=== PATIENT | female | born 1960 | race Caucasian/White ===

== ENCOUNTER 2017-07-20 14:52 | Inpatient (IN) | payer OTHER ==
--- NOTE | 2017-07-20 19:08 | HP ---
COWS - Scale Resting Pulse: 0= [place] 80 or Below Sweatin= Chills/Flushing Restless Observation: 3= Extraneous Movement Pupil Size: 0= Normal to Room Light Bone or Joint Aches: 2= Severe Diffuse Aches Runny Nose/ Eye Tearin= Runny Nose/Eyes GI Upset > 30mins: 2= Nausea/Diarrhea Tremor Observation: 2= Slight Tremor Visible Yawning Observation: 0= None Anxiety or Irritability: 2=Irritable/Anxious Goose Flesh Skin: 0=Smooth Skin COWS Score: 14 Admission [facility] Chief Complaint: withdrawal sx Allergies/Adverse Reactions: Allergies Allergy/AdvReac Type Severity Reaction Status Date / Time No Known Allergies Allergy Verified 07/20/17 17:54 History of Present Illness: 56 years old female with long history of heroin nicotine cocaine dependence has hypertension asthma diabetes and depression is admitted to detox Exam Limitations: No Limitations - Ebola screening Have you traveled outside of the country in the last 21 days: No Have you had contact with anyone from an Ebola affected area: No Have you been sick,other than usual withdrawal symptoms: No Do you have a fever: No - Review of Systems Constitutional: Loss of Appetite, Changes in sleep, Unintentional Wgt. Loss EENT: reports: Difficulty Swallowing (x few months possible due to "walking pneumonia" treated at [facility]), Throat Swelling (by history diatician evaluation pending) Respiratory: reports: No Symptoms reported Cardiac: reports: No Symptoms Reported, Other (mild left rib hurts below marginal of breast from "fell") GI: reports: Poor Appetite, Poor Fluid Intake, Abdominal cramping : reports: No Symptoms Reported Musculoskeletal: reports: Back Pain, Joint Pain, Muscle Pain, Neck Pain Integumentary: reports: No Symptoms Reported Neuro: reports: Tremors Endocrine: reports: No Symptoms Reported Hematology: reports: No Symptoms Reported Psychiatric: reports: Judgement Intact, Orientated x3, Depressed Other Systems: Reviewed and Negative Patient History - Patient Medical History Hx Anemia: No Hx Asthma: Yes (currently on prn medication) Hx Chronic Obstructive Pulmonary Disease (COPD): No Hx Cancer: No Hx Cardiac Disorders: No Hx Congestive Heart Failure: No Hx Hypertension: Yes (currently on treatment) Hx Hypercholesterolemia: No Hx Pacemaker: No HX Cerebrovascular Accident: No Hx Seizures: No Hx Dementia: No Hx Diabetes: Yes (IDDM) Hx Gastrointestinal Disorders: No Hx Liver Disease: No Hx Genitourinary Disorders: No Hx Sexually Transmitted Disorders: No Hx Renal Disease (ESRD): No Hx Thyroid Disease: No Hx Human Immunodeficiency Virus (HIV): Yes (since 1990) Hx Hepatitis C: No Hx Depression: Yes Hx Suicide Attempt: No Hx Bipolar Disorder: No Hx Schizophrenia: No - Patient Surgical History Past Surgical History: No Hx Neurologic Surgery: No Hx Cataract Extraction: No Hx Cardiac Surgery: No Hx Lung Surgery: No Hx Breast Surgery: No Hx Breast Biopsy: No Hx Abdominal Surgery: No Hx Appendectomy: No Hx Cholecystectomy: No Hx Genitourinary Surgery: No Hx Section: No Hx Orthopedic Surgery: No Hx Hysterectomy: No - PPD History Previous Implant?: Yes Documented Results: Negative w/proof Implanted On Prior [facility] Admission?: Yes Date: 03/21/15 Results: 0 mm PPD to be Administered?: Yes - Reproductive History Patient is a Female of Child Bearing Age (11 -55 yrs old): No Last Menstrual Period: 07/20/07 Patient : No - Smoking Cessation Smoking history: Current every day smoker Have you smoked in the past 12 months: Yes Aproximately how many cigarettes per day: 10 Cigars Per Day: 0 Hx Chewing Tobacco Use: No Initiated information on smoking cessation: Yes 'Breaking Loose' booklet given: 07/20/17 - Substance & Tx. History Hx Alcohol Use: No Hx Substance Use: Yes Substance Use Type: Cocaine, Heroin Hx Substance Use Treatment: Yes (04/2017 [facility]) - Substances Abused Heroin Route: Inhalation Frequency: Daily Amount used: 10 bags Age of first use: 23 Date of Last Use: 07/20/17 Crack Route: Smoking Frequency: Daily Amount used: 8 bags Age of first use: 20 Date of Last Use: 07/20/17 Family Disease History - Family Disease History Family Disease History: Diabetes: Father (), Mother, Heart Disease: Mother, Other: Father, Sister (thyroid) Admission Physical Exam BHS - Vital Signs Vital Signs: Vital Signs - 24 hr 07/20/17 17:22 Temperature 98.7 F Pulse Rate 75 Respiratory 18 Rate Blood Pressure 144/67 - Physical General Appearance: Yes: Appropriately Dressed, Mild Distress, Thin, Tremorous, Irritable, Sweating, Anxious, Other (left rib hurts below breast line) HEENTM: Yes: Hearing grossly Normal, Normal ENT Inspection, Normocephalic, Normal Voice Respiratory: Yes: Chest Non-Tender, Lungs Clear, Normal Breath Sounds, No Respiratory Distress, No Accessory Muscle Use Neck: Yes: Supple, Trachea in good position Breast: Yes: Breasts Symetrical Cardiology: Yes: Regular Rhythm, Regular Rate, S1, S2 Abdominal: Yes: Non Tender, Soft, Increased Bowel Sounds Genitourinary: Yes: Within Normal Limits Back: Yes: Normal Inspection Musculoskeletal: Yes: Gait Steady (cane), Back pain, Muscle Pain (left rib) Extremities: Yes: Normal Inspection, Non-Tender, Tremors Neurological: Yes: Fully Oriented, Alert, Normal Response, Depressed Affect Integumentary: Yes: Warm Lymphatic: Yes: Within Normal Limits - Diagnostic (1) Asthma Current Visit: Yes Status: Chronic (2) HYPERTENSION Current Visit: Yes Status: Chronic (3) Weight decreased Current Visit: Yes Status: Active (4) DM Diabetes mellitus type 1 Current Visit: Yes Status: Chronic (5) Depression Current Visit: Yes Status: Suspected Qualifiers: Depression Type: dysthymia Qualified Code(s): F34.1 - Dysthymic disorder; F34.1 - Dysthymic disorder; F34.1 - Dysthymic disorder (6) Human immunodeficiency virus infection Current Visit: Yes Status: Chronic (7) Nicotine dependence Current Visit: Yes Status: Acute Qualifiers: Nicotine product type: cigarettes Substance use status: in withdrawal Qualified Code(s): F17.213 - Nicotine dependence, cigarettes, with withdrawal; F17.213 - Nicotine dependence, cigarettes, with withdrawal (8) Opioid dependence with withdrawal Current Visit: Yes Status: Acute (9) Cocaine dependence, uncomplicated Current Visit: Yes Status: Chronic Cleared for Admission [facility] - Detox or Rehab [facility] Level of Care: Medically Managed Detox Regimen/Protocol: Methadone [facility] Breath Alcohol Content Breath Alcohol Content: 0 Urine Pregancy Test - Result Urine Test Results: Negative- NO Line Present Urine Drug Screen - Results Drug Screen Negative: Yes Urine Drug Screen Results: MEAGHAN-Cocaine, OPI-Opiates
[2017-07-20] MEDS ORDERED: MAGNESIUM HYDROX 2400MG/30ML ORAL SUSPENSION 30 ML CUP PO PRN (19:22)
[2017-07-20] MEDS ORDERED: diazePAM 5 MG TABLET PO PRN (19:22)
[2017-07-20] MEDS ORDERED: IBUPROFEN 400 MG TABLET (FP) PO PRN (19:22)
[2017-07-20] MEDS ORDERED: diphenhydrAMINE HCL 50 MG CAPSULE PO PRN (19:22)
[2017-07-20] MEDS ORDERED: MAGNESIUM CITRATE 300 ML BOTTLE PO PRN (19:22)
[2017-07-20] MEDS ORDERED: guaiFENesin/D-METHORPHAN HB 10 ML UNIT-DOSE CUPS PO PRN (19:22)
[2017-07-20] MEDS ORDERED: MENTHOL/PHENOL 1 EACH UD MM PRN (19:22)
[2017-07-20] MEDS ORDERED: LOPERAMIDE HCL 2 MG CAPSULE PO PRN (19:22)
[2017-07-20] MEDS ORDERED: ACETAMINOPHEN 325 MG TABLET (FP) PO PRN (19:22)
[2017-07-20] MEDS ORDERED: P-EPHED 60MG/TRIPROLIDI 2.5MG TABLET PO PRN (19:22)
[2017-07-20] MEDS ORDERED: METHADONE HCL 10 MG TABLET (FOR DETOX USE ONLY) PO ONE ×2 (19:22→23:00)
[2017-07-20] MEDS ORDERED: NICOTINE POLACRILEX 2 MG GUM BUC PRN (19:22)
[2017-07-20] MEDS ORDERED: MAG HYDROX/AL HYDROX/SIMETH 30 ML UNIT-DOSE CUP PO PRN (19:22)
[2017-07-20] MEDS ORDERED: NICOTINE 14 MG/24 HOURS TOPICAL PATCH TD PRN (19:22)
[2017-07-20] MEDS ORDERED: ALBUTEROL SO4 18 GM HFA INHALER IH PRN (19:37)
[2017-07-20 20:03] VITALS: BMI 13.7
[2017-07-20] MEDS: LISINOPRIL 5 MG TABLET (FP) PO SCH (21:00)
[2017-07-20] MEDS ORDERED: THIAMINE HCL 100 MG TABLET (FP) PO SCH (22:00)
[2017-07-20 22:11] LABS: URINE APPEARANCE CLEAR; URINE BILIRUBIN NEGATIVE (NEGATIVE); URINE BLOOD NEGATIVE (NEGATIVE); URINE COLOR LTYELLOW; URINE GLUCOSE (UA) 3+ (NEGATIVE); URINE KETONE NEGATIVE (NEGATIVE); URINE NITRITE NEGATIVE (NEGATIVE); URINE PROTEIN NEGATIVE (NEGATIVE); URINE UROBILINOGEN NEGATIVE mg/dL (0.2-1.0)
[2017-07-20] MEDS ORDERED: INSULIN (NOVOLOG) ASPART 100 UNITS/ML 10ML VIAL ONE (22:22)
[2017-07-20] MEDS: METHYL SALICYLATE/MENTHOL OINT 30 GM TUBE TP SCH (22:38)
[2017-07-20] MEDS: INSULIN SLIDING SCALE (NOVOLOG) 1 VIAL SQ SCH (22:39)
[2017-07-21] MEDS: INSULIN SLIDING SCALE (NOVOLOG) 1 VIAL SQ SCH (08:55)
[2017-07-21] MEDS ORDERED: METHADONE HCL 10 MG TABLET (FOR DETOX USE ONLY) PO ONE (10:00)
[2017-07-21] MEDS ORDERED: PRENATAL VITAMINS W/ FOLIC ACID TABLET (FP) PO SCH (10:00)
[2017-07-21 10:09] LABS: MCH 28.3 pg (25.7-33.7); MCHC 32.4 g/dl (32.0-36.0); MEAN CELL VOLUME 87.6 fl (80-96); MEAN PLT VOLUME 8.4 fl (7.5-11.1); PLATELET COUNT 460 K/MM3 (134-434); RDW 14.1 % (11.6-15.6); WHITE BLOOD COUNT 12.3 K/mm3 (4.0-10.0)
[2017-07-21 10:28] LABS: ALBUMIN 3.1 g/dl (3.4-5.0); ANION GAP 11 (8-16); CALCIUM 8.7 mg/dL (8.5-10.1); CO2 29 mmol/L (21-32); CREATININE 0.3 mg/dL (0.55-1.02); SGOT/AST 43 U/L (15-37); SGPT/ALT 25 U/L (12-78)
[2017-07-21 10:31] LABS: ALK PHOS 120 U/L (45-117); BILIRUBIN,TOTAL 0.4 mg/dL (0.2-1.0); TOT PROT 7.6 g/dl (6.4-8.2)
--- NOTE | 2017-07-21 10:43 | PN ---
BHS COWS - Scale Resting Pulse: 0= [place] 80 or Below Sweatin=Flushed/Facial Moisture Restless Observation: 1= Difficult to Sit Still Pupil Size: 0= Normal to Room Light Bone or Joint Aches: 2= Severe Diffuse Aches Runny Nose/ Eye Tearin= Nasal Congestion GI Upset > 30mins: 2= Nausea/Diarrhea Tremor Observation of Outstretched Hands: 2= Slight Tremor Visible Yawning Observation: 2= >3x During Session Anxiety or Irritability: 2=Irritable/Anxious Goose Flesh Skin: 3=Piloerection COWS Score: 17 BHS Progress Note (SOAP) Subjective: irritable agitation anxiety sweats shakes interrupted sleep restless Objective: 07/21/17 10:42 Vital Signs Temperature 96.9 F L 07/21/17 06:43 Pulse Rate 70 07/21/17 06:43 Respiratory Rate 18 07/21/17 06:43 Blood Pressure 160/72 07/21/17 06:43 O2 Sat by Pulse Oximetry (%) Laboratory Tests 07/20/17 07/20/17 07/20/17 17:59 21:29 21:56 WBC RBC Hgb Hct MCV MCH MCHC RDW Plt Count MPV POC Glucometer 263 346 Urine Color Ltyellow Urine Appearance Clear Urine pH 6.0 Urine Protein Negative Urine Glucose (UA) 3+ H Urine Ketones Negative Urine Blood Negative Urine Nitrite Negative Urine Bilirubin Negative Urine Urobilinogen Negative 07/21/17 07:00 WBC 12.3 H RBC 4.09 Hgb 11.6 D Hct 35.8 MCV 87.6 MCH 28.3 MCHC 32.4 RDW 14.1 Plt Count 460 H D MPV 8.4 D POC Glucometer Urine Color Urine Appearance Urine pH Urine Protein Urine Glucose (UA) Urine Ketones Urine Blood Urine Nitrite Urine Bilirubin Urine Urobilinogen labs pending aaox3 ambulating no acute distress Assessment: 07/21/17 10:43 withdrawal sx Plan: continue detox increase fluids labs pending
[2017-07-21 11:16] LABS: GLUCOSE,RANDOM 30 mg/dL (74-106)
--- NOTE | 2017-07-21 12:28 | CONSULT ---
[facility] Psychiatric Consult - Data Date of interview: 07/21/17 Admission source: [facility] Identifying data: Approached for psychiatric interview.Patient refused.
[2017-07-21] MEDS: LISINOPRIL 5 MG TABLET (FP) PO SCH (12:36)
[2017-07-21] MEDS: METHYL SALICYLATE/MENTHOL OINT 30 GM TUBE TP SCH (12:36)
[2017-07-21 12:37] LABS: URINE LEUK ESTERASE Negative (NEGATIVE)
[2017-07-21] MEDS ORDERED: INSULIN (NOVOLOG) ASPART 100 UNITS/ML 10ML VIAL SQ SCH (16:30)
[2017-07-21] MEDS ORDERED: INSULIN (NOVOLOG) ASPART 100 UNITS/ML 10ML VIAL ONE (17:14)
[2017-07-21 18:29] VITALS: BP 148/71; PULSE 95; TEMP 98.2
--- NOTE | 2017-07-21 20:29 | EKG ---
Test Reason : Blood Pressure : / mmHG Vent. Rate : 071 BPM Atrial Rate : 071 BPM P-R Int : 136 ms QRS Dur : 078 ms QT Int : 388 ms P-R-T Axes : 029 049 056 degrees QTc Int : 421 ms NORMAL SINUS RHYTHM NORMAL ECG WHEN COMPARED WITH ECG OF 21-MAR-2015 14:31, ST NO LONGER DEPRESSED IN INFERIOR LEADS ST NO LONGER DEPRESSED IN ANTERIOR LEADS QT HAS SHORTENED CLINICAL CORRELATION IS RECOMMENDED Confirmed by MARLENY JOHNS MD ([id number]) on 07/21/2017 8:29:36 PM Referred By: Confirmed By:MARLENY JOHNS MD
[2017-07-21] MEDS ORDERED: INSULIN DETEMIR 100 UNITS/ML MDV SQ SCH (22:00)
[2017-07-22] MEDS ORDERED: METHADONE HCL 5 MG TABLET (FOR DETOX USE ONLY) PO ONE (10:00)
--- NOTE | 2017-07-22 16:28 | DS ---
[facility] Detox Discharge Summary Admission Date: 07/20/17 Discharge Date: 07/21/17 - History Present History: Alcohol Dependence, Cocaine Dependence, Opioid Dependence Pertinent Past History: hiv nicotine addiction asthma chronic pneumonia copd diabetes i - Physical Exam Results Vital Signs: Vital Signs Temperature 98.2 F 07/21/17 18:28 Pulse Rate 95 H 07/21/17 18:28 Respiratory Rate 20 07/21/17 18:28 Blood Pressure 148/71 07/21/17 18:28 O2 Sat by Pulse Oximetry (%) Pertinent Admission Physical Exam Findings: withdrawal sx Laboratory Last Values WBC 12.3 K/mm3 (4.0-10.0) H 07/21/17 07:00 RBC 4.09 M/mm3 (3.60-5.2) 07/21/17 07:00 Hgb 11.6 GM/dL (10.7-15.3) D 07/21/17 07:00 Hct 35.8 % (32.4-45.2) 07/21/17 07:00 MCV 87.6 fl (80-96) 07/21/17 07:00 MCH 28.3 pg (25.7-33.7) 07/21/17 07:00 MCHC 32.4 g/dl (32.0-36.0) 07/21/17 07:00 RDW 14.1 % (11.6-15.6) 07/21/17 07:00 Plt Count 460 K/MM3 (134-434) H D 07/21/17 07:00 MPV 8.4 fl (7.5-11.1) D 07/21/17 07:00 Sodium 143 mmol/L (136-145) 07/21/17 07:00 Potassium 3.8 mmol/L (3.5-5.1) 07/21/17 07:00 Chloride 103 mmol/L (98-107) 07/21/17 07:00 Carbon Dioxide 29 mmol/L (21-32) D 07/21/17 07:00 Anion Gap 11 (8-16) 07/21/17 07:00 BUN 10 mg/dL (7-18) D 07/21/17 07:00 Creatinine 0.3 mg/dL (0.55-1.02) L D 07/21/17 07:00 Creat Clearance w eGFR > 60 (>60) 07/21/17 07:00 POC Glucometer 314 UNITS (()) 07/21/17 16:20 Random Glucose 30 mg/dL (74-106) L* D 07/21/17 07:00 Calcium 8.7 mg/dL (8.5-10.1) 07/21/17 07:00 Total Bilirubin 0.4 mg/dL (0.2-1.0) D 07/21/17 07:00 AST 43 U/L (15-37) H D 07/21/17 07:00 ALT 25 U/L (12-78) D 07/21/17 07:00 Alkaline Phosphatase 120 U/L (45-117) H 07/21/17 07:00 Total Protein 7.6 g/dl (6.4-8.2) 07/21/17 07:00 Albumin 3.1 g/dl (3.4-5.0) L 07/21/17 07:00 Urine Color Ltyellow 07/20/17 21:56 Urine Appearance Clear 07/20/17 21:56 Urine pH 6.0 (5.0-8.0) 07/20/17 21:56 Ur Specific [place] 1.015 (1.005-1.025) 07/20/17 21:56 Urine Protein Negative (NEGATIVE) 07/20/17 21:56 Urine Glucose (UA) 3+ (NEGATIVE) H 07/20/17 21:56 Urine Ketones Negative (NEGATIVE) 07/20/17 21:56 Urine Blood Negative (NEGATIVE) 07/20/17 21:56 Urine Nitrite Negative (NEGATIVE) 07/20/17 21:56 Urine Bilirubin Negative (NEGATIVE) 07/20/17 21:56 Urine Urobilinogen Negative mg/dL (0.2-1.0) 07/20/17 21:56 Ur Leukocyte Esterase Negative (NEGATIVE) 07/20/17 21:56 RPR Titer Nonreactive (NONREACTIVE) 07/21/17 07:00 lab noted - Treatment Hospital Course: Detox Protocol Followed, Responded well Patient has Accepted a Rehab Referral to: [facility] - Medication Discharge Medications: Ambulatory Orders Albuterol [Ventolin] 17 gm IH Q4H PRN 02/11/12 Emtricitabine/Tenofovir [Truvada -] 300 mg PO DAILY 02/11/12 Lisinopril [Prinivil] 5 mg PO DAILY 03/19/12 Ritonavir [Norvir] 100 mg PO DAILY 03/20/12 Darunavir Ethanolate [Prezista] 400 mg PO BID 08/10/12 Efavirenz [Sustiva] 600 mg PO HS 08/10/12 Insulin Regular, Human [Humulin R] 5 units SQ ACBK 08/10/12 NPH, Human Insulin Isophane [Humulin N] 10 units SQ ACDIN 08/10/12 NPH, Human Insulin Isophane [Humulin N] 15 units SQ ACBK 08/10/12 Zolpidem Tartrate [Ambien] 10 mg PO HS PRN 08/10/12 - Diagnosis (1) Asthma Status: Chronic (2) HYPERTENSION Status: Chronic (3) Weight decreased Status: Active (4) DM Diabetes mellitus type 1 Status: Chronic (5) Depression Status: Suspected Qualifiers: Depression Type: dysthymia Qualified Code(s): F34.1 - Dysthymic disorder; F34.1 - Dysthymic disorder; F34.1 - Dysthymic disorder (6) Human immunodeficiency virus infection Status: Chronic (7) Nicotine dependence Status: Acute Qualifiers: Nicotine product type: cigarettes Substance use status: in withdrawal Qualified Code(s): F17.213 - Nicotine dependence, cigarettes, with withdrawal; F17.213 - Nicotine dependence, cigarettes, with withdrawal (8) Opioid dependence with withdrawal Status: Acute (9) Cocaine dependence, uncomplicated Status: Chronic - AMA Did Patient Leave Against Medical Advice: Yes
[2017-07-23] MEDS ORDERED: METHADONE HCL 5 MG TABLET (FOR DETOX USE ONLY) PO ONE (10:00)
[2017-07-24] MEDS ORDERED: METHADONE HCL 10 MG TABLET (FOR DETOX USE ONLY) PO ONE (10:00)
[2017-07-25] MEDS ORDERED: METHADONE HCL 5 MG TABLET (FOR DETOX USE ONLY) PO ONE (06:00)
== END 2017-07-21 19:44 | disposition left against medical advice (07) | DRG 770 ==
LOC: YASAS 14:52 → Y6N 19:18
PROVIDERS: ADMIT Internal Medicine; ATTEND Internal Medicine
PROC: HZ2ZZZZ Detoxification Services for Substance Abuse Treatment (ICD-10-PCS; principal; 2017-07-20)
DX: F11.23 Opioid dependence with withdrawal (principal); F14.20 Cocaine dependence, uncomplicated; F17.213 Nicotine dependence, cigarettes, with withdrawal; F34.1 Dysthymic disorder; F41.9 Anxiety disorder, unspecified; I10 Essential (primary) hypertension; E11.9 Type 2 diabetes mellitus without complications; Z21 Asymptomatic human immunodeficiency virus [HIV] infection status; J45.909 Unspecified asthma, uncomplicated; Z79.4 Long term (current) use of insulin; Z87.898 Personal history of other specified conditions; Z86.79 Personal history of other diseases of the circulatory system
CPT/HCPCS: 36415; 80053; 81003; 85027; 86593; 93005; 93010

== ENCOUNTER 2017-08-11 12:03 | Inpatient (IN) | payer OTHER ==
[2017-08-11 13:09] VITALS: BMI 16.4
--- NOTE | 2017-08-11 15:33 | HP ---
COWS - Scale Resting Pulse: 0= [place] 80 or Below Sweatin=Flushed/Facial Moisture Restless Observation: 1= Difficult to Sit Still Pupil Size: 0= Normal to Room Light Bone or Joint Aches: 2= Severe Diffuse Aches Runny Nose/ Eye Tearin= Runny Nose/Eyes GI Upset > 30mins: 2= Nausea/Diarrhea Tremor Observation: 2= Slight Tremor Visible Yawning Observation: 2= >3x During Session Anxiety or Irritability: 2=Irritable/Anxious Goose Flesh Skin: 3=Piloerection COWS Score: 18 Admission ROS S - HPI Chief Complaint: I am here for detox and will not leave like the last time. Allergies/Adverse Reactions: Allergies Allergy/AdvReac Type Severity Reaction Status Date / Time No Known Allergies Allergy Verified 08/11/17 14:46 History of Present Illness: pt is a 56yr old female with a history of heroin and crack/cocaine dependence seeking detox for treatment. Exam Limitations: No Limitations - Ebola screening Have you traveled outside of the country in the last 21 days: No Have you had contact with anyone from an Ebola affected area: No Have you been sick,other than usual withdrawal symptoms: No Do you have a fever: No - Review of Systems Constitutional: Chills, Loss of Appetite, Night Sweats, Unintentional Wgt. Loss EENT: reports: Blurred Vision Respiratory: reports: No Symptoms reported Cardiac: reports: No Symptoms Reported GI: reports: Constipated, Poor Appetite, Poor Fluid Intake : reports: No Symptoms Reported Musculoskeletal: reports: No Symptoms Reported Integumentary: reports: Dryness, Sweating Endocrine: reports: No Symptoms Reported Hematology: reports: No Symptoms Reported Psychiatric: reports: Judgement Intact, Mood/Affect Appropiate, Orientated x3, Agitated, Anxious Other Systems: Reviewed and Negative Patient History - Patient Medical History Hx Anemia: No Hx Asthma: Yes Hx Chronic Obstructive Pulmonary Disease (COPD): No Hx Cancer: No Hx Cardiac Disorders: No Hx Congestive Heart Failure: No Hx Hypertension: No Hx Hypercholesterolemia: No Hx Pacemaker: No HX Cerebrovascular Accident: No Hx Seizures: No Hx Dementia: No Hx Diabetes: Yes (IDDM) Hx Gastrointestinal Disorders: Yes (stomach ulcer) Hx Liver Disease: No Hx Genitourinary Disorders: No Hx Sexually Transmitted Disorders: Yes (gonorrhea) Hx Renal Disease (ESRD): No Hx Thyroid Disease: No Hx Human Immunodeficiency Virus (HIV): Yes (since 1990) Hx Hepatitis C: No (negative) Hx Depression: Yes Hx Suicide Attempt: No (denies) Hx Bipolar Disorder: No Hx Schizophrenia: No - Patient Surgical History Past Surgical History: No Hx Neurologic Surgery: No Hx Cataract Extraction: No Hx Cardiac Surgery: No Hx Lung Surgery: No Hx Breast Surgery: No Hx Breast Biopsy: No Hx Abdominal Surgery: No Hx Appendectomy: No Hx Cholecystectomy: No Hx Genitourinary Surgery: No Hx Section: No Hx Orthopedic Surgery: No Hx Hysterectomy: No Anesthesia Reaction: No - PPD History Previous Implant?: Yes Documented Results: Negative w/o proof PPD to be Administered?: Yes - Reproductive History Patient is a Female of Child Bearing Age (11 -55 yrs old): No Last Menstrual Period: 07/20/07 - Smoking Cessation Smoking history: Current every day smoker Have you smoked in the past 12 months: Yes Aproximately how many cigarettes per day: 6 Cigars Per Day: 0 Hx Chewing Tobacco Use: No Initiated information on smoking cessation: Yes 'Breaking Loose' booklet given: 08/11/17 - Substance & Tx. History Hx Alcohol Use: No Hx Substance Use: Yes Substance Use Type: Heroin Hx Substance Use Treatment: Yes (last detox [facility] 06/2017 did not complete) - Substances Abused Heroin Route: Inhalation Frequency: Daily Amount used: 8-9 bags Age of first use: 20 Date of Last Use: 08/11/17 Crack Route: Smoking Frequency: 3-6 times per week Amount used: $10-20 Age of first use: 22 Date of Last Use: 08/09/17 Family Disease History - Family Disease History Family Disease History: Diabetes: Father (), Mother, Heart Disease: Mother, Other: Father, Sister (thyroid) Admission Physical Exam BHS - Vital Signs Vital Signs: Vital Signs - 24 hr 08/11/17 12:48 Temperature 98.0 F Pulse Rate 69 Respiratory 18 Rate Blood Pressure 106/52 - Physical General Appearance: Yes: Appropriately Dressed, Thin, Tremorous, Irritable, Sweating, Anxious HEENTM: Yes: Normal Voice, Nasal Congestion Respiratory: Yes: Rales, Rhonchi Neck: Yes: No masses,lesions,Nodules Breast: Yes: Within Normal Limits Cardiology: Yes: Regular Rhythm, Regular Rate, S1, S2 Abdominal: Yes: Normal Bowel Sounds, Non Tender, Soft Genitourinary: Yes: Within Normal Limits Back: Yes: Normal Inspection Musculoskeletal: Yes: full range of Motion Extremities: Yes: Normal Capillary Refill, Normal Inspection, Tremors Neurological: Yes: Fully Oriented, Alert, Normal Response Integumentary: Yes: Normal Color, Diaphoresis Lymphatic: Yes: Within Normal Limits - Diagnostic (1) Opioid dependence with withdrawal Current Visit: No Status: Chronic (2) Asthma Current Visit: No Status: Chronic (3) Cocaine dependence, uncomplicated Current Visit: No Status: Chronic (4) DM Diabetes mellitus type 1 Current Visit: No Status: Chronic (5) HYPERTENSION Current Visit: No Status: Chronic (6) Human immunodeficiency virus infection Current Visit: No Status: Chronic Cleared for Admission [facility] - Detox or Rehab [facility] Level of Care: Medically Managed Detox Regimen/Protocol: Methadone [facility] Breath Alcohol Content Breath Alcohol Content: 0 Urine Pregancy Test - Result Urine Test Results: Negative- NO Line Present Urine Drug Screen - Results Drug Screen Negative: No Urine Drug Screen Results: MEAGHAN-Cocaine, OPI-Opiates
[2017-08-11] MEDS ORDERED: MAGNESIUM CITRATE 300 ML BOTTLE PO PRN (15:40)
[2017-08-11] MEDS ORDERED: hydrOXYzine PAMOATE 50 MG CAPSULE (FP) PO PRN (15:40)
[2017-08-11] MEDS ORDERED: MENTHOL/PHENOL 1 EACH UD MM PRN (15:40)
[2017-08-11] MEDS ORDERED: guaiFENesin/D-METHORPHAN HB 10 ML UNIT-DOSE CUPS PO PRN (15:40)
[2017-08-11] MEDS ORDERED: MAG HYDROX/AL HYDROX/SIMETH 30 ML UNIT-DOSE CUP PO PRN (15:40)
[2017-08-11] MEDS ORDERED: LOPERAMIDE HCL 2 MG CAPSULE PO PRN (15:40)
[2017-08-11] MEDS ORDERED: P-EPHED 60MG/TRIPROLIDI 2.5MG TABLET PO PRN (15:40)
[2017-08-11] MEDS ORDERED: NICOTINE POLACRILEX 2 MG GUM BC PRN (15:40)
[2017-08-11] MEDS ORDERED: ACETAMINOPHEN 325 MG TABLET (FP) PO PRN (15:40)
[2017-08-11] MEDS ORDERED: MAGNESIUM HYDROX 2400MG/30ML ORAL SUSPENSION 30 ML CUP PO PRN (15:40)
[2017-08-11] MEDS ORDERED: IBUPROFEN 400 MG TABLET (FP) PO PRN (15:40)
[2017-08-11] MEDS ORDERED: ALBUTEROL SO4 18 GM HFA INHALER IH PRN (15:45)
[2017-08-11] MEDS ORDERED: METHADONE HCL 10 MG TABLET (FOR DETOX USE ONLY) PO ONE ×2 (17:15→23:00)
[2017-08-11] MEDS ORDERED: INSULIN (NOVOLOG) ASPART 100 UNITS/ML 10ML VIAL ONE (18:22)
[2017-08-11] MEDS: INSULIN (NOVOLOG) ASPART 100 UNITS/ML 10ML VIAL SQ SCH (18:30)
[2017-08-11] MEDS ORDERED: FLUCONAZOLE PO SCH (22:00)
[2017-08-11] MEDS ORDERED: INSULIN DETEMIR 100 UNITS/ML MDV SQ SCH (22:00)
[2017-08-11] MEDS: THIAMINE HCL 100 MG TABLET (FP) PO SCH (22:41)
[2017-08-11 22:48] LABS: URINE APPEARANCE SLCLOUDY; URINE BILIRUBIN NEGATIVE (NEGATIVE); URINE BLOOD NEGATIVE (NEGATIVE); URINE COLOR DKYELLOW; URINE GLUCOSE (UA) 3+ (NEGATIVE); URINE KETONE TRACE (NEGATIVE); URINE NITRITE NEGATIVE (NEGATIVE); URINE PROTEIN NEGATIVE (NEGATIVE)
--- NOTE | 2017-08-12 07:43 | CONSULT ---
[facility] Psychiatric Consult - Data Date of interview: 08/12/17 Admission source: [facility] Identifying data: This is 56 years old female with no psychiatric hospitalization history intoxicated with: Cocaine, Heroin , Nicotine, - Opioids abuse history as well Substance Abuse History: - Smoking Cessation. Smoking history: Current every day smoker. Have you smoked in the past 12 months: Yes. Aproximately how many cigarettes per day: 6. Cigars Per Day: 0. Hx Chewing Tobacco Use: No. Initiated information on smoking cessation: Yes. 'Breaking Loose' booklet given : 08/11/17. - Substance & Tx. History. Hx Alcohol Use: No. Hx Substance Use: Yes. Substance Use Type: Heroin. Hx Substance Use Treatment: Yes (last detox [facility] 06/2017 did not complete). - Substances Abused. Heroin. Route: Inhalation. Frequency: Daily. Amount used: 8-9 bags. Age of first use: 20. Date of Last Use: 08/11/17. Crack. Route: Smoking. Frequency: 3-6 times per week. Amount used: $10-20. Age of first use: 22. Date of Last Use: Medical History: Asthma, DM-1, HTN, HIV+ Psychiatric History: Patient reports history of depression and anxiety, reports taking prior to admission: Ambien 10mg po qhs. Viibryd 20mg poqd Physical/Sexual Abuse/Trauma History: Denies, unclear Additional Comment: Ambien 10mg po qhs. Viibryd 2p mg poqd Mental Status Exam - Mental Status Exam Alert and Oriented to: Person Cognitive Function: Fair Patient Appearance: Unkempt Mood: Sad Affect: Flat Patient Behavior: Sedated Speech Pattern: Delayed Voice Loudness: Mildly Soft/Quiet Thought Process: Circumstantial, Goal Oriented Thought Disorder: Being Controlled Hallucinations: Denies Homicidal Ideation: Denies Insight/Judgement: Fair Sleep: Difficulty falling asleep Appetite: Weight loss Muscle strength/Tone: Mild Hypotonicity Gait/Station: Shuffling Additional Comments: Ambien 10mg po qhs. Viibryd 2p mg poqd Psychiatric Findings - Problem List ([place] 1, 2,3) (1) Drug-induced mood disorder Current Visit: Yes Status: Acute (2) Anxiety Current Visit: No Status: Active (3) Weight decreased Current Visit: No Status: Active (4) Alcohol dependence Current Visit: No Status: Acute (5) Nicotine dependence Current Visit: No Status: Acute Qualifiers: Nicotine product type: cigarettes Substance use status: in withdrawal Qualified Code(s): F17.213 - Nicotine dependence, cigarettes, with withdrawal (6) Cocaine dependence, uncomplicated Current Visit: No Status: Chronic (7) Opioid dependence with withdrawal Current Visit: No Status: Chronic - Initial Treatment Plan Initial Treatment Plan: Ambien 10mg po qhs. Viibryd 2p mg poqd
[2017-08-12] MEDS: INSULIN (NOVOLOG) ASPART 100 UNITS/ML 10ML VIAL SQ SCH ×3 (07:49→17:14)
[2017-08-12] MEDS ORDERED: ZOLPIDEM TARTRATE 5 MG TABLET PO STA (08:00)
[2017-08-12] MEDS ORDERED: FLUCONAZOLE 100 MG TABLET (UD) PO SCH ×2 (08:45→11:45)
[2017-08-12] MEDS ORDERED: SULFAMETHOXAZOLE/TRIMETHOPRIM 800MG/160MG D.S. TABLET PO ONE (09:54)
[2017-08-12] MEDS ORDERED: PATIENT'S OWN MEDICATION (NON-FORMULARY) (Darunavir/Cobicistat [Prezcobix 800 Mg-150 Mg Ta PO SCH (10:00)
[2017-08-12] MEDS ORDERED: METHADONE HCL 10 MG TABLET (FOR DETOX USE ONLY) PO ONE (10:00)
[2017-08-12] MEDS ORDERED: PREZCOBIX PO SCH (10:00)
[2017-08-12] MEDS ORDERED: VILAZODONE HYDROCHLORIDE 20 MG TABLET PO SCH ×4 (10:00→14:57)
[2017-08-12] MEDS ORDERED: PATIENT'S OWN MEDICATION (NON-FORMULARY) (Jardiance 25 MG) PO SCH (10:00)
[2017-08-12] MEDS ORDERED: BENAZEPRIL PO SCH (10:00)
[2017-08-12] MEDS ORDERED: SULFAMETHOXAZOLE/TRIMETHOPRIM 800MG/160MG D.S. TABLET PO SCH ×2 (10:00→14:00)
[2017-08-12] MEDS ORDERED: PATIENT'S OWN MEDICATION (NON-FORMULARY) (Empagliflozin [Jardiance] 25 MG) PO SCH (10:00)
[2017-08-12] MEDS ORDERED: AMLODIPINE PO SCH (10:00)
[2017-08-12] MEDS ORDERED: NICOTINE 14 MG/24 HOURS TOPICAL PATCH TD SCH (10:00)
[2017-08-12] MEDS ORDERED: PATIENT'S OWN MEDICATION (NON-FORMULARY) (Emtricitabine/Tenofov Alafenam [Descovy 200-25 M PO SCH (10:00)
[2017-08-12] MEDS ORDERED: PRENATAL VITAMINS W/ FOLIC ACID TABLET (FP) PO SCH (10:00)
[2017-08-12] MEDS ORDERED: PATIENT'S OWN MEDICATION (NON-FORMULARY) (Amlodipine Besylate/Benazepril [Lotrel 10-20 Mg PO SCH (10:00)
[2017-08-12] MEDS ORDERED: DESCOVY PO SCH (10:00)
[2017-08-12] MEDS ORDERED: [UNRECOGNIZED DRUG - OTHER] PO SCH (10:00)
[2017-08-12 10:05] LABS: MCH 28.7 pg (25.7-33.7); MCHC 32.2 g/dl (32.0-36.0); MEAN CELL VOLUME 89.1 fl (80-96); MEAN PLT VOLUME 9.3 fl (7.5-11.1); PLATELET COUNT 234 K/MM3 (134-434); WHITE BLOOD COUNT 6.3 K/mm3 (4.0-10.0)
[2017-08-12 10:11] LABS: ALBUMIN 2.9 g/dl (3.4-5.0); ANION GAP 8 (8-16); BILIRUBIN,TOTAL 0.4 mg/dL (0.2-1.0); CALCIUM 8.3 mg/dL (8.5-10.1); CO2 29 mmol/L (21-32); CREATININE 0.6 mg/dL (0.55-1.02); GLUCOSE,RANDOM 123 mg/dL (74-106); SGOT/AST 11 U/L (15-37); SGPT/ALT 11 U/L (12-78); TOT PROT 6.3 g/dl (6.4-8.2)
[2017-08-12 10:12] LABS: ALK PHOS 80 U/L (45-117)
[2017-08-12] MEDS: diazePAM 5 MG TABLET PO PRN ×2 (10:44→22:26)
[2017-08-12] MEDS ORDERED: amLODIPine BESYLATE 10 MG TABLET (FP) PO ONE (10:53)
[2017-08-12 11:00] LABS: URINE LEUK ESTERASE Negative (NEGATIVE)
--- NOTE | 2017-08-12 11:29 | PN ---
BHS COWS - Scale Resting Pulse: 0= [place] 80 or Below Sweatin=Flushed/Facial Moisture Restless Observation: 1= Difficult to Sit Still Pupil Size: 0= Normal to Room Light Bone or Joint Aches: 2= Severe Diffuse Aches Runny Nose/ Eye Tearin= Nasal Congestion GI Upset > 30mins: 1= Stomach Cramp Tremor Observation of Outstretched Hands: 2= Slight Tremor Visible Yawning Observation: 2= >3x During Session Anxiety or Irritability: 2=Irritable/Anxious Goose Flesh Skin: 3=Piloerection COWS Score: 16 BHS Progress Note (SOAP) Subjective: sweats shakes interrupted sleep agitation anxiety body aches Objective: 08/12/17 11:28 Vital Signs Temperature 98.3 F 08/12/17 10:09 Pulse Rate 80 08/12/17 10:09 Respiratory Rate 16 08/12/17 10:09 Blood Pressure 140/60 08/12/17 10:09 O2 Sat by Pulse Oximetry (%) Laboratory Tests 08/11/17 08/11/17 08/11/17 15:23 18:11 21:30 WBC RBC Hgb Hct MCV MCH MCHC RDW Plt Count MPV Sodium Potassium Chloride Carbon Dioxide Anion Gap BUN Creatinine Creat Clearance w eGFR POC Glucometer 474 560 Random Glucose Calcium Total Bilirubin AST ALT Alkaline Phosphatase Total Protein Albumin Urine Color Dkyellow Urine Appearance Slcloudy Urine pH 5.0 Ur Specific [place] 1.035 Urine Protein Negative Urine Glucose (UA) 3+ H Urine Ketones Trace H Urine Blood Negative Urine Nitrite Negative Urine Bilirubin Negative Urine Urobilinogen 2.0 H Ur Leukocyte Esterase Negative 08/12/17 08/12/17 08/12/17 05:49 06:50 07:00 WBC 6.3 D RBC 4.05 Hgb 11.6 Hct 36.1 MCV 89.1 MCH 28.7 MCHC 32.2 RDW 15.0 Plt Count 234 D MPV 9.3 D Sodium Potassium Chloride Carbon Dioxide Anion Gap BUN Creatinine Creat Clearance w eGFR POC Glucometer 46 132 Random Glucose Calcium Total Bilirubin AST ALT Alkaline Phosphatase Total Protein Albumin Urine Color Urine Appearance Urine pH Ur Specific [place] Urine Protein Urine Glucose (UA) Urine Ketones Urine Blood Urine Nitrite Urine Bilirubin Urine Urobilinogen Ur Leukocyte Esterase 08/12/17 07:00 WBC RBC Hgb Hct MCV MCH MCHC RDW Plt Count MPV Sodium 141 Potassium 3.5 Chloride 104 Carbon Dioxide 29 Anion Gap 8 BUN 12 Creatinine 0.6 D Creat Clearance w eGFR > 60 POC Glucometer Random Glucose 123 H D Calcium 8.3 L Total Bilirubin 0.4 AST 11 L D ALT 11 L D Alkaline Phosphatase 80 D Total Protein 6.3 L Albumin 2.9 L Urine Color Urine Appearance Urine pH Ur Specific [place] Urine Protein Urine Glucose (UA) Urine Ketones Urine Blood Urine Nitrite Urine Bilirubin Urine Urobilinogen Ur Leukocyte Esterase aaox3 ambulating no acute distress Assessment: 08/12/17 11:28 withdrawal sx Plan: continue detox increase fluids
[2017-08-12] MEDS ORDERED: LISINOPRIL 10 MG TABLET (FP) PO SCH (11:30)
--- NOTE | 2017-08-12 11:38 | EKG ---
Test Reason : Blood Pressure : / mmHG Vent. Rate : 069 BPM Atrial Rate : 069 BPM P-R Int : 128 ms QRS Dur : 086 ms QT Int : 408 ms P-R-T Axes : 046 047 060 degrees QTc Int : 437 ms NORMAL SINUS RHYTHM NORMAL ECG WHEN COMPARED WITH ECG OF 20-JUL-2017 19:50, NO SIGNIFICANT CHANGE WAS FOUND Confirmed by MINESH AKINS MD ([id number]) on 08/12/2017 11:37:57 AM Referred By: Confirmed By:MINESH AKINS MD
[2017-08-12] MEDS ORDERED: INSULIN (NOVOLOG) ASPART 100 UNITS/ML 10ML VIAL ONE (11:43)
--- NOTE | 2017-08-12 14:07 | PN ---
[facility] Progress Note Note: discussion was made with pharmacist Maribeth regarding pts blister pack with medication for her HIV and BP that pt had not been taking her medication since May 2017, and pt has been non-compliant with all her medication. pt also has not been taking her jardiance since 2015 as well. all this was confirmed with her pharmacy as per Maribeth. all her HIV medication has been d/c. pt will require to see her PMD for re-evaluate after detox.
[2017-08-12] MEDS ORDERED: ZOLPIDEM TARTRATE 10 MG TABLET (PARK CARE ONLY) PO SCH (22:00)
[2017-08-12] MEDS ORDERED: INSULIN DETEMIR 100 UNITS/ML MDV SQ SCH (22:00)
[2017-08-12] MEDS: THIAMINE HCL 100 MG TABLET (FP) PO SCH (22:26)
[2017-08-13 06:28] VITALS: BP 170/75; PULSE 66; TEMP 97.9
[2017-08-13] MEDS: INSULIN (NOVOLOG) ASPART 100 UNITS/ML 10ML VIAL SQ SCH (08:15)
--- NOTE | 2017-08-13 08:31 | PN ---
S CIWA - CIWA Score Nausea/Vomitin Muscle Tremors: 3 Anxiety: 3 Agitation: 2 Paroxysmal Sweats: 1-Minimal Palms Moist Orientation: 0-Oriented Tacttile Disturbances: 1-Very Mild Itch/Numbness Auditory Disturbances: 1-Very Mild Visual Disturbances: 0-None Headache: 2-Mild CIWA-Ar Total Score: 16 BHS COWS - Scale Resting Pulse: 0= DC 80 or Below Sweatin= Chills/Flushing Restless Observation: 3= Extraneous Movement Pupil Size: 1= Pupils >than Normal Bone or Joint Aches: 2= Severe Diffuse Aches Runny Nose/ Eye Tearin= Runny Nose/Eyes GI Upset > 30mins: 2= Nausea/Diarrhea Tremor Observation of Outstretched Hands: 2= Slight Tremor Visible Yawning Observation: 2= >3x During Session Anxiety or Irritability: 2=Irritable/Anxious Goose Flesh Skin: 0=Smooth Skin COWS Score: 17 BHS Progress Note (SOAP) Subjective: alert,irritable,anxious,interrupted sleep,tremor,interrupted sleep,pain in the body and back Objective: 08/13/17 08:29 Vital Signs Temperature 97.9 F 08/13/17 06:27 Pulse Rate 66 08/13/17 06:27 Respiratory Rate 16 08/13/17 06:27 Blood Pressure 170/75 08/13/17 06:27 O2 Sat by Pulse Oximetry (%) Laboratory Last Values WBC 6.3 K/mm3 (4.0-10.0) D 08/12/17 07:00 RBC 4.05 M/mm3 (3.60-5.2) 08/12/17 07:00 Hgb 11.6 GM/dL (10.7-15.3) 08/12/17 07:00 Hct 36.1 % (32.4-45.2) 08/12/17 07:00 MCV 89.1 fl (80-96) 08/12/17 07:00 MCH 28.7 pg (25.7-33.7) 08/12/17 07:00 MCHC 32.2 g/dl (32.0-36.0) 08/12/17 07:00 RDW 15.0 % (11.6-15.6) 08/12/17 07:00 Plt Count 234 K/MM3 (134-434) D 08/12/17 07:00 MPV 9.3 fl (7.5-11.1) D 08/12/17 07:00 Sodium 141 mmol/L (136-145) 08/12/17 07:00 Potassium 3.5 mmol/L (3.5-5.1) 08/12/17 07:00 Chloride 104 mmol/L (98-107) 08/12/17 07:00 Carbon Dioxide 29 mmol/L (21-32) 08/12/17 07:00 Anion Gap 8 (8-16) 08/12/17 07:00 BUN 12 mg/dL (7-18) 08/12/17 07:00 Creatinine 0.6 mg/dL (0.55-1.02) D 08/12/17 07:00 Creat Clearance w eGFR > 60 (>60) 08/12/17 07:00 POC Glucometer 100 UNITS (80-120) 08/13/17 06:36 Random Glucose 123 mg/dL (74-106) H D 08/12/17 07:00 Calcium 8.3 mg/dL (8.5-10.1) L 08/12/17 07:00 Total Bilirubin 0.4 mg/dL (0.2-1.0) 08/12/17 07:00 AST 11 U/L (15-37) L D 08/12/17 07:00 ALT 11 U/L (12-78) L D 08/12/17 07:00 Alkaline Phosphatase 80 U/L (45-117) D 08/12/17 07:00 Total Protein 6.3 g/dl (6.4-8.2) L 08/12/17 07:00 Albumin 2.9 g/dl (3.4-5.0) L 08/12/17 07:00 Urine Color Dkyellow 08/11/17 21:30 Urine Appearance Slcloudy 08/11/17 21:30 Urine pH 5.0 (5.0-8.0) 08/11/17 21:30 Ur Specific [place] 1.035 (1.001-1.035) 08/11/17 21:30 Urine Protein Negative (NEGATIVE) 08/11/17 21:30 Urine Glucose (UA) 3+ (NEGATIVE) H 08/11/17 21:30 Urine Ketones Trace (NEGATIVE) H 08/11/17 21:30 Urine Blood Negative (NEGATIVE) 08/11/17 21:30 Urine Nitrite Negative (NEGATIVE) 08/11/17 21:30 Urine Bilirubin Negative (NEGATIVE) 08/11/17 21:30 Urine Urobilinogen 2.0 mg/dL (0.2-1.0) H 08/11/17 21:30 Ur Leukocyte Esterase Negative (NEGATIVE) 08/11/17 21:30 RPR Titer Nonreactive (NONREACTIVE) 08/12/17 07:00 Assessment: 08/13/17 08:30 withdrawal symptom Plan: continue detox
--- NOTE | 2017-08-13 09:25 | PN ---
S Progress Note Note: PATIENT DID NOT ANT TO COMPLETE TREATMENT,SIGNED RELEASE AMA,SEEN BY COUNSELOR
--- NOTE | 2017-08-13 09:28 | DS ---
[facility] Detox Discharge Summary Admission Date: 08/11/17 Discharge Date: 08/13/17 - History Present History: Cocaine Dependence, Opioid Dependence Additional Comments: PATIENT DID NOT WANT TO COMPLETE TREATMENT,SIGNED RELEASE AMA,SEEN BY COUNSELOR Pertinent Past History: ASTHMA HYPERTENSION HIV TYPE 2 DM - Physical Exam Results Vital Signs: Vital Signs Temperature 97.9 F 08/13/17 06:27 Pulse Rate 66 08/13/17 06:27 Respiratory Rate 16 08/13/17 06:27 Blood Pressure 170/75 08/13/17 06:27 O2 Sat by Pulse Oximetry (%) Pertinent Admission Physical Exam Findings: WITHDRAWAL SYMPTOM - Medication Discharge Medications: Ambulatory Orders Zolpidem Tartrate [Ambien] 10 mg PO HS 08/10/12 Albuterol Sulfate Inhaler - [Ventolin Hfa Inhaler -] 2 inh PO Q4H PRN 08/11/17 Amlodipine Besylate/Benazepril [Lotrel 10-20 mg Capsule] 1 cap PO DAILY Darunavir/Cobicistat [Prezcobix 800 mg-150 mg Tablet] 1 each PO DAILY 08/11/17 Empagliflozin [Jardiance] 25 mg PO DAILY 08/11/17 Emtricitabine/Tenofov Alafenam [Descovy 200-25 mg Tablet] 1 each PO DAILY Fluconazole [Diflucan -] 100 mg PO BID 08/11/17 Insulin Glargine,Hum.rec.anlog [Toujeo Solostar] 10 unit SQ BID 08/11/17 Multivitamins [Tab-A-Vit -] 1 tab PO DAILY 08/11/17 Sulfamethoxazole/Trimethoprim [Sulfamethoxazole-Tmp Ds Tablet] 1 each PO DAILY 08/11/17 Vilazodone Hydrochloride [Viibryd] 20 mg PO DAILY 08/11/17 Fluoxetine HCl [Prozac] 20 mg PO BID #30 capsule 08/12/17 Zolpidem Tartrate [Ambien] 10 mg PO HS #14 tablet MDD 10 08/12/17 Zolpidem Tartrate [Ambien] 10 mg PO HS #14 tablet MDD 10 08/12/17 Zolpidem Tartrate [Ambien] 10 mg PO HS #14 tablet MDD 10 08/12/17 - Diagnosis (1) Opioid dependence with withdrawal Current Visit: No Status: Chronic (2) Asthma Current Visit: No Status: Chronic (3) Cocaine dependence, uncomplicated Current Visit: No Status: Chronic (4) HYPERTENSION Current Visit: No Status: Chronic (5) Human immunodeficiency virus infection Current Visit: No Status: Chronic (6) Weight decreased Current Visit: No Status: Active (7) DM Diabetes mellitus type 1 Current Visit: No Status: Chronic (8) Depression Current Visit: No Status: Suspected Qualifiers: Depression Type: dysthymia Qualified Code(s): F34.1 - Dysthymic disorder - AMA Did Patient Leave Against Medical Advice: Yes
[2017-08-13] MEDS ORDERED: METHADONE HCL 5 MG TABLET (FOR DETOX USE ONLY) PO ONE (10:00)
[2017-08-13] MEDS ORDERED: amLODIPine BESYLATE 10 MG TABLET (FP) PO SCH (10:00)
[2017-08-14] MEDS ORDERED: METHADONE HCL 5 MG TABLET (FOR DETOX USE ONLY) PO ONE (10:00)
[2017-08-15] MEDS ORDERED: METHADONE HCL 10 MG TABLET (FOR DETOX USE ONLY) PO ONE (10:00)
[2017-08-16] MEDS ORDERED: METHADONE HCL 5 MG TABLET (FOR DETOX USE ONLY) PO ONE (06:00)
== END 2017-08-13 09:20 | disposition left against medical advice (07) | DRG 770 ==
LOC: YASAS 12:03 → Y6N 16:40
PROVIDERS: ADMIT Internal Medicine; ATTEND Internal Medicine
PROC: HZ2ZZZZ Detoxification Services for Substance Abuse Treatment (ICD-10-PCS; principal; 2017-08-11)
DX: F11.23 Opioid dependence with withdrawal (principal); F14.20 Cocaine dependence, uncomplicated; F17.213 Nicotine dependence, cigarettes, with withdrawal; F41.9 Anxiety disorder, unspecified; F34.1 Dysthymic disorder; I10 Essential (primary) hypertension; J45.909 Unspecified asthma, uncomplicated; Z21 Asymptomatic human immunodeficiency virus [HIV] infection status; E10.9 Type 1 diabetes mellitus without complications; Z91.14 Patient's other noncompliance with medication regimen; Z87.42 Personal history of other diseases of the female genital tract; Z79.4 Long term (current) use of insulin; Z87.898 Personal history of other specified conditions
CPT/HCPCS: 36415; 80053; 81003; 85027; 86593; 93005; 93010

== ENCOUNTER 2018-06-10 10:03 | Inpatient (IN) | payer OTHER ==
[2018-06-10 10:53] VITALS: BMI 15.6
--- NOTE | 2018-06-10 13:40 | HP ---
COWS - Scale Resting Pulse: 0= MA 80 or Below Sweatin=Flushed/Facial Moisture Restless Observation: 1= Difficult to Sit Still Pupil Size: 2= Moderately Dilated Bone or Joint Aches: 2= Severe Diffuse Aches Runny Nose/ Eye Tearin= Runny Nose/Eyes GI Upset > 30mins: 2= Nausea/Diarrhea Tremor Observation: 0= None Yawning Observation: 1= 1-2x During Session Anxiety or Irritability: 1=Feels Anxious/Irritable Goose Flesh Skin: 0=Smooth Skin COWS Score: 13 Admission [facility] Chief Complaint: PATIENT PRESENTS WITH HEROIN WITHDRAWAL SYMPTOMS. Allergies/Adverse Reactions: Allergies Allergy/AdvReac Type Severity Reaction Status Date / Time No Known Allergies Allergy Verified 06/10/18 11:34 History of Present Illness: PATIENT PRESENTS WITH HEROIN WITHDRAWAL SYMPTOMS. PATIENT STARTED SNIFFING HEROIN AT AGE 22. SNIFFS UP TO 6 BAGS DAILY. LAST TIME SHE USED WAS AT 3 AM THIS MORNING. PATIENT ALSO SMOKES CRACK FOR 4 MONTHS. AMOUNT SMOKES VARIES. LAST TIME SHE USED WAS 3 DAYS AGO. PATIENT DENIES HX OF OVERDOSE AND SEIZURES. PMH INCLUDES HTN, ASTHMA, DEPRESSION, DM AND HIV. PATIENT DENIES SI/HI AND SUICIDE ATTEMPTS. LAST ATTEMPT AT DETOX IN 2017 AT [facility]. Exam Limitations: No Limitations - Ebola screening Have you traveled outside of the country in the last 21 days: No Have you had contact with anyone from an Ebola affected area: No Have you been sick,other than usual withdrawal symptoms: No Do you have a fever: No - Review of Systems Constitutional: Chills, Changes in sleep, Unexplained wgt Loss EENT: reports: Tearing, Nose Congestion, Throat Pain Respiratory: reports: Cough Cardiac: reports: No Symptoms Reported GI: reports: Poor Appetite, Poor Fluid Intake, Abdominal cramping : reports: No Symptoms Reported Musculoskeletal: reports: Back Pain, Muscle Pain Neuro: reports: No Symptoms reported Endocrine: reports: Unexplained Weight Loss Hematology: reports: No Symptoms Reported Psychiatric: reports: Orientated x3, Anxious, Depressed Patient History - Patient Medical History Hx Anemia: No Hx Asthma: Yes (Pt is on MDI.) Hx Chronic Obstructive Pulmonary Disease (COPD): No Hx Cancer: No Hx Cardiac Disorders: No Hx Congestive Heart Failure: No Hx Hypertension: Yes (ON MEDS.) Hx Hypercholesterolemia: No Hx Pacemaker: No HX Cerebrovascular Accident: No Hx Seizures: No Hx Dementia: No Hx Diabetes: Yes Hx Gastrointestinal Disorders: Yes (Hx of GERD) Hx Liver Disease: No Hx Genitourinary Disorders: No Hx Sexually Transmitted Disorders: No Hx Renal Disease (ESRD): No Hx Thyroid Disease: No Hx Human Immunodeficiency Virus (HIV): Yes (since 1990) Hx Hepatitis C: No (negative) Hx Depression: Yes Hx Suicide Attempt: No Hx Bipolar Disorder: No Hx Schizophrenia: No - Patient Surgical History Past Surgical History: No Hx Neurologic Surgery: No Hx Cataract Extraction: No Hx Cardiac Surgery: No Hx Lung Surgery: No Hx Breast Surgery: No Hx Breast Biopsy: No Hx Abdominal Surgery: No Hx Appendectomy: No Hx Cholecystectomy: No Hx Genitourinary Surgery: No Hx Section: No Hx Orthopedic Surgery: No Hx Hysterectomy: No Anesthesia Reaction: No - PPD History Previous Implant?: Yes Documented Results: Negative w/o proof Implanted On Prior R Admission?: Yes Date: 07/22/17 Results: 0 mm PPD to be Administered?: No - Reproductive History Last Menstrual Period: 07/20/07 Patient : No - Smoking Cessation Smoking history: Current every day smoker Have you smoked in the past 12 months: Yes Aproximately how many cigarettes per day: 6 Cigars Per Day: 0 Hx Chewing Tobacco Use: No Initiated information on smoking cessation: Yes 'Breaking Loose' booklet given: 06/10/18 - Substance & Tx. History Hx Alcohol Use: Yes Hx Substance Use: Yes Substance Use Type: Alcohol, Cocaine, Heroin Hx Substance Use Treatment: Yes - Substances Abused Heroin Route: Inhalation Frequency: Daily Amount used: 5-6 BAGS Age of first use: 20 Date of Last Use: 06/09/18 Alcohol Route: Oral Frequency: 3-6 times per week Amount used: 3 BEERS Age of first use: 20 Date of Last Use: 06/08/18 Crack Route: Smoking Frequency: Daily Amount used: $50-60 Age of first use: 25 Date of Last Use: 06/08/18 Family Disease History - Family Disease History Family Disease History: Diabetes: Father (), Mother, Heart Disease: Mother, Other: Father, Sister (thyroid) Admission Physical Exam BHS - Vital Signs Vital Signs: Vital Signs - 24 hr 06/10/18 10:50 Temperature 99.8 F H Pulse Rate 61 Respiratory 17 Rate Blood Pressure 113/56 - Physical General Appearance: Yes: No Apparent Distress, Nourished, Disheveled, Thin, Anxious HEENTM: Yes: EOMI, Hearing grossly Normal, Normocephalic, DARRICK, Nasal Congestion , Thrush Respiratory: Yes: Chest Non-Tender, Lungs Clear, Normal Breath Sounds, No Respiratory Distress, No Accessory Muscle Use Neck: Yes: No masses,lesions,Nodules, Supple Breast: Yes: Breast Exam Deferred Cardiology: Yes: Regular Rhythm, Regular Rate, S1, S2 Abdominal: Yes: Normal Bowel Sounds, Non Tender, Flat, Soft Genitourinary: Yes: Within Normal Limits Back: Yes: Normal Inspection Musculoskeletal: Yes: full range of Motion, Gait Steady, Back pain, Muscle Pain Extremities: Yes: Normal Inspection, Normal Range of Motion, Non-Tender Neurological: Yes: campus ambassador II-XII NML intact, Fully Oriented, Alert, Normal Response , Depressed Affect Integumentary: Yes: Normal Color, Warm, Moist Lymphatic: Yes: Within Normal Limits Cleared for Admission [facility] - Detox or Rehab [facility] Level of Care: Medically Managed Detox Regimen/Protocol: Methadone [facility] Breath Alcohol Content Breath Alcohol Content: 0 Urine Pregancy Test - Result Urine Test Results: Negative- NO Line Present Urine Drug Screen - Results Drug Screen Negative: No Urine Drug Screen Results: MEAGHAN-Cocaine, OPI-Opiates, FEN-Fentanyl
[2018-06-10] MEDS ORDERED: MENTHOL/PHENOL 1 EACH UD MM PRN (13:47)
[2018-06-10] MEDS ORDERED: P-EPHED 60MG/TRIPROLIDI 2.5MG TABLET PO PRN (13:47)
[2018-06-10] MEDS ORDERED: IBUPROFEN 400 MG TABLET (FP) PO PRN (13:47)
[2018-06-10] MEDS ORDERED: LOPERAMIDE HCL 2 MG CAPSULE PO PRN (13:47)
[2018-06-10] MEDS ORDERED: ACETAMINOPHEN 325 MG TABLET (FP) PO PRN (13:47)
[2018-06-10] MEDS ORDERED: MAGNESIUM CITRATE 300 ML BOTTLE PO PRN (13:47)
[2018-06-10] MEDS ORDERED: NICOTINE POLACRILEX 4 MG GUM BUC PRN (13:47)
[2018-06-10] MEDS ORDERED: MAGNESIUM HYDROX 2400MG/30ML ORAL SUSPENSION 30 ML CUP PO PRN (13:47)
[2018-06-10] MEDS ORDERED: guaiFENesin/D-METHORPHAN HB 10 ML UNIT-DOSE CUPS PO PRN (13:47)
[2018-06-10] MEDS ORDERED: MAG HYDROX/AL HYDROX/SIMETH 30 ML UNIT-DOSE CUP PO PRN (13:47)
[2018-06-10] MEDS ORDERED: hydrOXYzine PAMOATE 50 MG CAPSULE (FP) PO PRN (13:47)
[2018-06-10] MEDS ORDERED: ALBUTEROL SO4 8 GM HFA INHALER IH PRN (13:48)
--- NOTE | 2018-06-10 14:05 | CONSULT ---
[facility] Psychiatric Consult - Data Date of interview: 06/10/18 Admission source: [facility] Identifying data: This is a 57 years old female, mother of two, living with family, unemployed, on SSD, with psychiatric hospitaliation history , multiple medical problems, reports long history of Heroin, Cocaine, Alcohol and Nicotine dependence, reports Alcohol withdrawal symptoms and seeking for detox. Substance Abuse History: PATIENT PRESENTS WITH HEROIN WITHDRAWAL SYMPTOMS. PATIENT STARTED SNIFFING HEROIN AT AGE 22. SNIFFS UP TO 6 BAGS DAILY. LAST TIME SHE USED WAS AT 3 AM THIS MORNING. PATIENT ALSO SMOKES CRACK FOR 4 MONTHS. AMOUNT SMOKES VARIES. LAST TIME SHE USED WAS 3 DAYS AGO. PATIENT DENIES HX OF OVERDOSE AND SEIZURES. PMH INCLUDES HTN, ASTHMA, DEPRESSION, DM AND HIV. PATIENT DENIES SI/HI AND SUICIDE ATTEMPTS. LAST ATTEMPT AT DETOX IN 2017 AT [facility]. Medical History: Asthma, Syncope history, DM-I, Weight loss, HTN, HIV+ Psychiatric History: Patient reports anxiety and depression, reports no psychiatric hospitalization history, no medications taking prior to admission. Reports insomnia asking for Ambien 10mg po qhs. Patient reports only suicidal attempt by OD on more then 15 years ago, reports no suicidal history since then. Reports psychiatric admission after above suicidal incident. Physical/Sexual Abuse/Trauma History: Denies Additional Comment: Ambien 10mg po qhs Mental Status Exam - Mental Status Exam Alert and Oriented to: Place, Person Cognitive Function: Fair Patient Appearance: Unkempt Mood: Anxious Affect: Mood Congruent Patient Behavior: Cooperative Speech Pattern: Appropriate Voice Loudness: Mildly Soft/Quiet Thought Process: Goal Oriented Thought Disorder: Being Controlled Hallucinations: Denies Suicidal Ideation: Denies Homicidal Ideation: Denies Insight/Judgement: Fair Sleep: Difficulty falling asleep Appetite: Weight loss Muscle strength/Tone: Mild Hypotonicity Gait/Station: Normal Additional Comments: Ambien 10mg po qhs Psychiatric Findings - Problem List ([place] 1, 2,3) (1) Nicotine dependence Current Visit: Yes Status: Acute Qualifiers: Nicotine product type: cigarettes Substance use status: in withdrawal Qualified Code(s): F17.213 - Nicotine dependence, cigarettes, with withdrawal (2) Opioid dependence with withdrawal Current Visit: Yes Status: Acute (3) Cocaine dependence, uncomplicated Current Visit: Yes Status: Chronic (4) Alcohol dependence Current Visit: No Status: Acute (5) Drug-induced mood disorder Current Visit: No Status: Acute - Initial Treatment Plan Initial Treatment Plan: Ambien 10mg po qhs
[2018-06-10] MEDS ORDERED: METHADONE HCL 10 MG TABLET (FOR DETOX USE ONLY) PO ONE ×2 (14:11→23:00)
[2018-06-10] MEDS: diazePAM 5 MG TABLET PO PRN (14:41)
--- NOTE | 2018-06-10 15:41 | EKG ---
Test Reason : Blood Pressure : / mmHG Vent. Rate : 063 BPM Atrial Rate : 063 BPM P-R Int : 130 ms QRS Dur : 084 ms QT Int : 388 ms P-R-T Axes : 032 040 061 degrees QTc Int : 397 ms NORMAL SINUS RHYTHM NORMAL ECG WHEN COMPARED WITH ECG OF 11-AUG-2017 18:14, NO SIGNIFICANT CHANGE WAS FOUND Confirmed by ALEN SMITH MD ([id number]) on 06/10/2018 3:40:47 PM Referred By: Confirmed By:ALEN SMITH MD
[2018-06-10] MEDS ORDERED: INSULIN REGULAR HUMAN 100 UNITS/ML *VIAL SQ ONE (17:28)
[2018-06-10] MEDS ORDERED: INSULIN (NOVOLOG) ASPART 100 UNITS/ML 10ML VIAL SQ ONE ×2 (17:28→18:00)
--- NOTE | 2018-06-10 17:35 | PN ---
[facility] Progress Note Note: NOTIFIED BY RN PATIENT HAS BLOOD SUGAR OF 426. TAKE TRUJEO BUT LEFT MEDICATION HOME. WILL ORDER 8 UNITS OF INSULIN NOW AND SLIDING SCALE ORDERED BID AC. ENCOURAGE ORAL FLUIDS. CONTINUE TO MONITOR CLINICALLY. WILL ORDER BGM AT 10PM AND HAVE RN NOTIFY MD/BRANCH ASSOCIATE TELLER IF OVER 400 OR LESS THAN 60.
[2018-06-10] MEDS ORDERED: INSULIN (NOVOLOG) ASPART 100 UNITS/ML 10ML VIAL ONE (17:48)
[2018-06-10] MEDS: NYSTATIN 500,000 UNITS/5 ML SUSPENSION PO SCH ×2 (17:49→23:10)
[2018-06-10 18:20] LABS: URINE APPEARANCE CLEAR; URINE BILIRUBIN NEGATIVE (<2.0 mg/dL); URINE COLOR YELLOW; URINE GLUCOSE (UA) 3+ (NEGATIVE); URINE KETONE NEGATIVE (NEGATIVE); URINE LEUK ESTERASE NEGATIVE (NEGATIVE); URINE NITRITE NEGATIVE (NEGATIVE); URINE PROTEIN NEGATIVE (NEGATIVE)
[2018-06-10] MEDS ORDERED: ZOLPIDEM TARTRATE 10 MG TABLET (PARK CARE ONLY) PO PRN (22:00)
[2018-06-10] MEDS ORDERED: MELATONIN 5 MG TABLETS PO PRN (22:00)
[2018-06-10] MEDS ORDERED: THIAMINE HCL 100 MG TABLET (FP) PO SCH (22:00)
[2018-06-11] MEDS: diazePAM 5 MG TABLET PO PRN (06:35)
[2018-06-11] MEDS: NYSTATIN 500,000 UNITS/5 ML SUSPENSION PO SCH (06:36)
[2018-06-11] MEDS ORDERED: INSULIN SLIDING SCALE (NOVOLOG) 1 VIAL SQ SCH (07:00)
[2018-06-11 09:40] VITALS: BP 140/75; PULSE 79; TEMP 98.2
[2018-06-11] MEDS ORDERED: PRENATAL VITAMINS W/ FOLIC ACID TABLET (FP) PO SCH (10:00)
[2018-06-11] MEDS ORDERED: METHADONE HCL 10 MG TABLET (FOR DETOX USE ONLY) PO ONE (10:00)
[2018-06-11 11:16] LABS: HEMATOCRIT 36.6 % (32.4-45.2); HEMOGLOBIN 11.6 GM/dL (10.7-15.3); MCH 27.8 pg (25.7-33.7); MCHC 31.6 g/dl (32.0-36.0); MEAN PLT VOLUME 10.1 fl (7.5-11.1); PLATELET COUNT 232 K/MM3 (134-434); RBC 4.16 M/mm3 (3.60-5.2); RDW 13.8 % (11.6-15.6); WHITE BLOOD COUNT 5.1 K/mm3 (4.0-10.0)
[2018-06-11 11:23] LABS: ALBUMIN 3.1 g/dl (3.4-5.0); ANION GAP 9 MMOL/L (8-16); BLOOD UREA NITROGEN 9 mg/dL (7-18); CHLORIDE 104 mmol/L (98-107); CO2 30 mmol/L (21-32); GLUCOSE,RANDOM 330 mg/dL (74-106); POTASSIUM 5.6 mmol/L (3.5-5.1); SGOT/AST 12 U/L (15-37); SGPT/ALT 15 U/L (13-61); SODIUM 143 mmol/L (136-145)
[2018-06-11 11:25] LABS: ALK PHOS 78 U/L (45-117); BILIRUBIN,TOTAL 0.3 mg/dL (0.2-1.0); CREATININE 0.8 mg/dL (0.55-1.3); TOT PROT 6.6 g/dl (6.4-8.2)
--- NOTE | 2018-06-11 11:50 | PN ---
[facility] Progress Note Note: Psychiatric nurse practitioner note: Sequencing Machine Operator asked to evaluate patient for suicidal ideation. She is coherent, alert and oriented X3. Pt. presented as restless, anxious, and irritable. Ms. Ribera has a history of opiate dependence. Pt. denies h/o psychiatric treatment and suicide attempts. Also denies h/o accepting psychotropic medications. Pt. denies urges or thoughts to hurt self or others. Stated to hand sign writer, " I want to go home. I am uncomfortable and my stomach hurts. I can treat myself better at home." Despite current observed behavior of irritability and restlessness there is no clinical reason to hold patient against her will or to send her out for further psychiatric evaluation. .
[2018-06-12] MEDS ORDERED: METHADONE HCL 5 MG TABLET (FOR DETOX USE ONLY) PO ONE (10:00)
[2018-06-13] MEDS ORDERED: METHADONE HCL 5 MG TABLET (FOR DETOX USE ONLY) PO ONE (10:00)
[2018-06-14] MEDS ORDERED: METHADONE HCL 10 MG TABLET (FOR DETOX USE ONLY) PO ONE (10:00)
[2018-06-15] MEDS ORDERED: METHADONE HCL 5 MG TABLET (FOR DETOX USE ONLY) PO ONE (06:00)
== END 2018-06-11 10:55 | disposition left against medical advice (07) | DRG 770 ==
LOC: YASAS 10:03 → Y6N 13:51
PROC: HZ2ZZZZ Detoxification Services for Substance Abuse Treatment (ICD-10-PCS; principal; 2018-06-10)
DX: F11.23 Opioid dependence with withdrawal (principal); F10.20 Alcohol dependence, uncomplicated; F14.20 Cocaine dependence, uncomplicated; F17.213 Nicotine dependence, cigarettes, with withdrawal; F19.24 Other psychoactive substance dependence with psychoactive substance-induced mood disorder; F32.9 Major depressive disorder, single episode, unspecified; Z21 Asymptomatic human immunodeficiency virus [HIV] infection status; I10 Essential (primary) hypertension; E10.9 Type 1 diabetes mellitus without complications; Z79.4 Long term (current) use of insulin; J45.909 Unspecified asthma, uncomplicated; K21.9 Gastro-esophageal reflux disease without esophagitis; R63.4 Abnormal weight loss; Z68.1 Body mass index [BMI] 19.9 or less, adult
CPT/HCPCS: 36415; 80053; 81003; 82962; 85027; 86593; 93005; 93010

== ENCOUNTER 2019-01-26 11:56 | Inpatient (IN) | payer OTHER ==
[2019-01-26 12:37] VITALS: BMI 16.7
--- NOTE | 2019-01-26 13:52 | HP ---
CIWA Score Nausea/Vomitin Muscle Tremors: 3 Anxiety: 3 Agitation: 3 Paroxysmal Sweats: 1-Minimal Palms Moist Orientation: 0-Oriented Tacttile Disturbances: 1-Very Mild Itch/Numbness Auditory Disturbances: 1-Very Mild Visual Disturbances: 0-None Headache: 2-Mild CIWA-Ar Total Score: 16 - Admission Criteria OASAS Guidelines: Admission for Medically Managed Detox: Requires at least one of the followin. CIWA greater than 12 2. Seizures within the past 24 hours 3. Delirium tremens within the past 24 hours 4. Hallucinations within the past 24 hours 5. Acute intervention needed for co occurring medical disorder 6. Acute intervention needed for co occurring psychiatric disorder 7. Severe withdrawal that cannot be handled at a lower level of care (continued vomiting, continued diarrhea, abnormal vital signs) requiring intravenous medication and/or fluids 8. Admission ROS S - HPI Chief Complaint: i need help to stop drinking alcohol,heroin abused,mmtp 50 mgs/day,last medicated today, cocaine dependence last treatment [facility] 06/10/18 to 06/11/18 not completed weight loss type 2 dm on insulin hiv since 1990 no medication hypertension asthma on albuterol inhaler nicotine dependence 4 cigarette/day,does not need nicotine replacement longest period of sobriety 4 years Allergies/Adverse Reactions: Allergies Allergy/AdvReac Type Severity Reaction Status Date / Time No Known Allergies Allergy Verified 01/26/19 12:26 History of Present Illness: this 58 years old female with alcohol,cocaine dependence,heroin abused,mmtp 50 mgs/day for detox please see chief complaint - Ebola screening Have you traveled outside of the country in the last 21 days: No (N) Have you had contact with anyone from an Ebola affected area: No Do you have a fever: No - Review of Systems Constitutional: Chills, Loss of Appetite, Malaise, Night Sweats, Changes in sleep, Weakness, Unintentional Wgt. Loss EENT: reports: Tearing, Nose Congestion Respiratory: reports: Other (asthma) Cardiac: reports: No Symptoms Reported GI: reports: Diarrhea, Nausea, Poor Appetite, Abdominal cramping : reports: No Symptoms Reported Musculoskeletal: reports: Back Pain, Joint Pain, Muscle Pain Integumentary: reports: Dryness Neuro: reports: Headache, Tremors Endocrine: reports: No Symptoms Reported Hematology: reports: No Symptoms Reported, Other (hiv positiv e since 1990) Psychiatric: reports: No Sypmtoms Reported, Judgement Intact, Mood/Affect Appropiate, Orientated x3, Anxious, Depressed Other Systems: Reviewed and Negative Patient History - Patient Medical History Hx Anemia: No Hx Asthma: Yes (Pt is on MDI.) Hx Chronic Obstructive Pulmonary Disease (COPD): No Hx Cancer: No Hx Cardiac Disorders: No Hx Congestive Heart Failure: No Hx Hypertension: Yes (ON MEDS.) Hx Hypercholesterolemia: No Hx Pacemaker: No HX Cerebrovascular Accident: No Hx Seizures: No Hx Dementia: No Hx Diabetes: Yes (on insulin) Hx Gastrointestinal Disorders: Yes (Hx of GERD) Hx Liver Disease: No Hx Genitourinary Disorders: No Hx Sexually Transmitted Disorders: No Hx Renal Disease (ESRD): No Hx Thyroid Disease: No Hx Human Immunodeficiency Virus (HIV): Yes (since 1990 no med) Hx Hepatitis C: No (negative) Hx Depression: Yes Hx Suicide Attempt: No Hx Bipolar Disorder: No Hx Schizophrenia: No Other Medical History: no suicidal,no homicidal,ambulation with a cane - Patient Surgical History Past Surgical History: No Hx Neurologic Surgery: No Hx Cataract Extraction: No Hx Cardiac Surgery: No Hx Lung Surgery: No Hx Breast Surgery: No Hx Breast Biopsy: No Hx Abdominal Surgery: No Hx Appendectomy: No Hx Cholecystectomy: No Hx Genitourinary Surgery: No Hx Section: No Hx Orthopedic Surgery: No Hx Hysterectomy: No Anesthesia Reaction: No - PPD History Documented Results: Negative w/o proof Implanted On Prior R Admission?: Yes Date: 07/22/17 Results: 0 mm PPD to be Administered?: Yes - Reproductive History Patient is a Female of Child Bearing Age (11 -55 yrs old): No Last Menstrual Period: 07/20/07 Patient : No - Smoking Cessation Smoking history: Current every day smoker Have you smoked in the past 12 months: Yes Aproximately how many cigarettes per day: 6 Cigars Per Day: 0 Hx Chewing Tobacco Use: No Initiated information on smoking cessation: Yes 'Breaking Loose' booklet given: 01/26/19 - Substance & Tx. History Hx Alcohol Use: Yes Hx Substance Use: Yes Substance Use Type: Alcohol, Cocaine, Heroin Hx Substance Use Treatment: Yes ([facility] to 06/11/18 not completed) - Substances abused Heroin Substance route: Inhalation Frequency: Daily Amount used: $100 Age of first use: 20 Date of last use: 01/26/19 Alcohol Substance route: Oral Frequency: Daily Amount used: 1pint of bacardi/2 of 12 ozs of beer Age of first use: 12 Date of last use: 01/25/19 Crack Substance route: Smoking Frequency: 1-2 times per week Amount used: 30$ Age of first use: 20 Date of last use: 01/25/19 Family Disease History - Family Disease History Family Disease History: Diabetes: Father (), Mother, Heart Disease: Mother, Other: Father, Sister (thyroid) Admission Physical Exam [facility] - Vital Signs Vital Signs: Vital Signs - 24 hr 01/26/19 12:23 Temperature 98.1 F Pulse Rate 53 L Respiratory 20 Rate Blood Pressure 143/61 - Physical General Appearance: Yes: Moderate Distress, Irritable, Sweating, Anxious HEENTM: Yes: Normal ENT Inspection, DARRICK, Nasal Congestion (oropharyngeal candidiasis), Other Respiratory: Yes: Lungs Clear, Normal Breath Sounds, No Respiratory Distress Neck: Yes: Within Normal Limits, Supple, Trachea in good position Breast: Yes: Breast Exam Deferred Cardiology: Yes: Bradycardia Abdominal: Yes: Within Normal Limits, Normal Bowel Sounds, Soft Genitourinary: Yes: Within Normal Limits Musculoskeletal: Yes: full range of Motion, Back pain, Muscle Pain Extremities: Yes: Normal Range of Motion, Tremors Neurological: Yes: campus manager II-XII NML intact, Fully Oriented, Alert, Motor Strength 5/5 Integumentary: Yes: Dry, Rash (BOTH LEGS AND HANDS) Lymphatic: Yes: Within Normal Limits - Diagnostic (1) Alcohol dependence with uncomplicated withdrawal Current Visit: Yes Status: Acute (2) Weight decreased Current Visit: No Status: Active (3) Syncope Current Visit: No Status: Acute (4) Asthma Current Visit: No Status: Chronic (5) Cocaine dependence, uncomplicated Current Visit: No Status: Chronic (6) DM Diabetes mellitus type 1 Current Visit: No Status: Chronic (7) HYPERTENSION Current Visit: No Status: Chronic (8) Human immunodeficiency virus infection Current Visit: No Status: Chronic (9) Heroin abuse Current Visit: Yes Status: Acute (10) Contact dermatitis Current Visit: Yes Status: Acute (11) Oropharyngeal candidiasis Current Visit: Yes Status: Acute (12) Use of cane as ambulatory aid Current Visit: Yes Status: Acute Cleared for Admission [facility] - Detox or Rehab [facility] Level of Care: Medically Managed Detox Regimen/Protocol: Librium Breathalyzer - Breathalyzer Breathalyzer: 0 Urine Drug Screen - Test Device Lot number: [id number] Expiration date: 08/27/20 - Control Is test valid?: Yes - Results Drug screen NEGATIVE: No Urine drug screen results: FEN-Fentanyl, MOP-Opiates, MTD-Methadone Inpatient Rehab Admission - Rehab Decision to Admit Inpatient rehab admission?: No
[2019-01-26] MEDS ORDERED: BISMUTH SUBSALICYLATE 262 MG/15 ML BTL PO PRN (14:11)
[2019-01-26] MEDS ORDERED: ACETAMINOPHEN 325 MG TABLET (FP) PO PRN ×2 (14:11)
[2019-01-26] MEDS ORDERED: hydrOXYzine PAMOATE 25 MG CAPSULE (FP) PO PRN (14:11)
[2019-01-26] MEDS ORDERED: MAG HYDROX/AL HYDROX/SIMETH 30 ML UNIT-DOSE CUP PO PRN (14:11)
[2019-01-26] MEDS ORDERED: MELATONIN 5 MG TABLETS PO PRN (14:11)
[2019-01-26] MEDS ORDERED: MENTHOL/PHENOL 1 EACH UD MM PRN (14:11)
[2019-01-26] MEDS ORDERED: METHOCARBAMOL 500 MG TABLET PO PRN (14:11)
[2019-01-26] MEDS ORDERED: IBUPROFEN 400 MG TABLET (FP) PO PRN (14:11)
[2019-01-26] MEDS ORDERED: chlordiazePOXIDE HCL 25 MG CAPSULE PO PRN (14:11)
[2019-01-26] MEDS ORDERED: MAGNESIUM HYDROX 2400MG/30ML ORAL SUSPENSION 30 ML CUP PO PRN (14:11)
[2019-01-26] MEDS ORDERED: MAGNESIUM CITRATE 300 ML BOTTLE PO PRN (14:11)
[2019-01-26] MEDS ORDERED: ALBUTEROL SO4 8 GM HFA INHALER IH PRN (14:15)
--- NOTE | 2019-01-26 15:39 | EKG ---
Test Reason : Blood Pressure : / mmHG Vent. Rate : 055 BPM Atrial Rate : 055 BPM P-R Int : 128 ms QRS Dur : 078 ms QT Int : 478 ms P-R-T Axes : 014 033 053 degrees QTc Int : 457 ms SINUS BRADYCARDIA OTHERWISE NORMAL ECG WHEN COMPARED WITH ECG OF 10-JUN-2018 14:17, T WAVE AMPLITUDE HAS DECREASED IN ANTERIOR LEADS QT HAS LENGTHENED Confirmed by TASHI OERLLANA, MINESH ([id number]) on 01/26/2019 3:38:44 PM Referred By: Confirmed By:MINESH AKINS MD
[2019-01-26] MEDS: chlordiazePOXIDE HCL 25 MG CAPSULE PO SCH ×2 (16:59→22:17)
[2019-01-26 17:07] LABS: HEMATOCRIT 32.8 % (32.4-45.2); HEMOGLOBIN 10.6 GM/dL (10.7-15.3); MCH 27.7 pg (25.7-33.7); MCHC 32.3 g/dl (32.0-36.0); MEAN PLT VOLUME 9.1 fl (7.5-11.1); PLATELET COUNT 183 K/MM3 (134-434); RBC 3.82 M/mm3 (3.60-5.2); RDW 16.2 % (11.6-15.6); WHITE BLOOD COUNT 4.5 K/mm3 (4.0-10.0)
[2019-01-26 17:16] LABS: ALK PHOS 80 U/L (45-117); ANION GAP 1 MMOL/L (8-16); BILIRUBIN,TOTAL 0.2 mg/dL (0.2-1); BLOOD UREA NITROGEN 10 mg/dL (7-18); CALCIUM 8.8 mg/dL (8.5-10.1); CHLORIDE 104 mmol/L (98-107); CO2 36 mmol/L (21-32); CREATININE 0.7 mg/dL (0.55-1.3); GLUCOSE,RANDOM 78 mg/dL (74-106); POTASSIUM 4.5 mmol/L (3.5-5.1); SGOT/AST 17 U/L (15-37); SGPT/ALT 14 U/L (13-61); SODIUM 142 mmol/L (136-145); TOT PROT 7.1 g/dl (6.4-8.2)
[2019-01-26] MEDS ORDERED: INSULIN (LEVEMIR) 100 UNITS/ML UNITS SQ SCH (22:00)
[2019-01-26] MEDS ORDERED: FLUCONAZOLE 100 MG TABLET (UD) PO SCH (22:00)
[2019-01-26] MEDS: RANITIDINE HCL 150 MG TABLET (FP) PO SCH (22:16)
[2019-01-26] MEDS: THIAMINE HCL 100 MG TABLET (FP) PO SCH (22:16)
[2019-01-26] MEDS: FLUOCINONIDE 0.05% CREAM (60 GM TUBE) TP SCH (22:21)
[2019-01-27] MEDS ORDERED: METHADONE HCL 40 MG DISPERSABLE TABLET ONE (04:24)
[2019-01-27] MEDS ORDERED: METHADONE HCL 10 MG TABLET ONE (04:24)
[2019-01-27] MEDS ORDERED: METHADONE HCL 10 MG TABLET PO SCH (06:00)
[2019-01-27] MEDS: METHADONE 40 MG, METHADONE 10 MG PO SCH (06:26)
[2019-01-27] MEDS: chlordiazePOXIDE HCL 25 MG CAPSULE PO SCH ×4 (06:26→22:06)
[2019-01-27] MEDS: INSULIN (LEVEMIR) 100 UNITS/ML UNITS SQ SCH (06:31)
[2019-01-27] MEDS ORDERED: INSULIN (LEVEMIR) 100 UNITS/ML UNITS SQ ONE (06:31)
--- NOTE | 2019-01-27 10:02 | PN ---
S CIWA - CIWA Score Nausea/Vomitin-No Nausea/No Vomiting Muscle Tremors: 3 Anxiety: 3 Agitation: 3 Paroxysmal Sweats: 3 Orientation: 0-Oriented Tacttile Disturbances: 0-None Auditory Disturbances: 0-None Visual Disturbances: 0-None Headache: 0-None Present CIWA-Ar Total Score: 12 BHS Progress Note (SOAP) Subjective: sweats sleepy tired interrupted sleep body aches Objective: 01/27/19 10:04 Vital Signs Temperature 98.1 F 01/27/19 06:34 Pulse Rate 72 01/27/19 06:34 Respiratory Rate 16 01/27/19 06:34 Blood Pressure 137/60 01/27/19 06:34 O2 Sat by Pulse Oximetry (%) Laboratory Tests 01/26/19 01/26/19 01/26/19 13:08 14:54 15:05 WBC 4.5 RBC 3.82 Hgb 10.6 L Hct 32.8 MCV 86.0 MCH 27.7 MCHC 32.3 RDW 16.2 H Plt Count 183 D MPV 9.1 Sodium Potassium Chloride Carbon Dioxide Anion Gap BUN Creatinine Creat Clearance w eGFR POC Glucometer 80 Random Glucose Calcium Total Bilirubin AST ALT Alkaline Phosphatase Total Protein Albumin POC Urine HCG, Qual Negative 01/26/19 01/26/19 01/27/19 15:05 16:33 06:01 WBC RBC Hgb Hct MCV MCH MCHC RDW Plt Count MPV Sodium 142 Potassium 4.5 Chloride 104 Carbon Dioxide 36 H Anion Gap 1 L BUN 10 Creatinine 0.7 Creat Clearance w eGFR 85.95 POC Glucometer 134 270 Random Glucose 78 Calcium 8.8 Total Bilirubin 0.2 AST 17 ALT 14 Alkaline Phosphatase 80 Total Protein 7.1 Albumin 3.0 L POC Urine HCG, Qual aaox3 ambulating no acute distress Assessment: 01/27/19 10:04 mild withdrawal sx Plan: hold 10am libirum and resume later increase fluids
--- NOTE | 2019-01-27 10:13 | CONSULT ---
[facility] Psychiatric Consult - Data Date of interview: 01/27/19 Admission source: Self-referred Identifying data: Ms Ribera is a 58 years old female, mother of 2 children, unemployed receiving SSI, living with family seeking for alcohol, opioid and cocaine Substance Abuse History: Reports history of alcohol, heroin and cocaine use. Refer to addiction counselor's summary for further information Medical History: Significant for history of bronchial asthma, hypertension and type 2 diabetes mellitus and HIV+ since 1990. Patient is on methadone 50 mg/day from [facility]. Smokes 4-6 cigarettes daily Psychiatric History: Patient is a poor and unreliable historian who is somewhat sedated. Reports that her first psychiatric contact was in the for seeing and hearing things. She saw a psychiatrist at a clinic in the [place] and she was prescribed Trazadone and other unknown medications. Reports subsequent psychiatric contacts on & off since. Claims that her most recent outpatient contact was in 2018. Report 2 previous psychiatric hospitalizations both at [facility] but was not informative in providing details about these admissions. Reports previous suicidal attempts by overdose on pills. Acording to facility EMR, She has a long history of admissions to detox in this facility since June 2011. She saw administrative underwriter on 03/20/15 and was not prescribed any medication. She saw Dr Delacruz on two occasions in 2017 and 2018. She was ordered Viibryd 20 mg/day(doubt she received it since in not formulary)and Ambien in 2017 and only Ambien in 2018. Reports not taking any psychotropic medication currently. Denies experiencing psychotic or depressive symptoms, S/H ideations. Physical/Sexual Abuse/Trauma History: Denies history of emotional, physical or sexual abuse as well as DV relationship Additional Comment: Denies criminal history Mental Status Exam - Mental Status Exam Alert and Oriented to: Time (not oriented to time at all), Place, Person (could not tell name of [place] president only saying:'He is a bad man") Cognitive Function: Impaired (somewhat due probably due her sedative state) Patient Appearance: Well Groomed Mood: Hopeful, Euthymic Patient Behavior: Sedated Speech Pattern: Clear Voice Loudness: Normal Suicidal Ideation: Denies Homicidal Ideation: Denies Insight/Judgement: Poor Appetite: Poor Muscle strength/Tone: Normal Gait/Station: Normal Psychiatric Findings - Problem List ([place] 1, 2,3) (1) Depressive disorder Current Visit: Yes Status: Chronic (2) Substance induced mood disorder Current Visit: Yes Status: Ruled-out (3) Substance-induced sleep disorder Current Visit: Yes Status: Acute (4) Alcohol dependence with uncomplicated withdrawal Current Visit: Yes Status: Acute (5) Cocaine dependence, uncomplicated Current Visit: No Status: Acute (6) Opioid dependence on agonist therapy Current Visit: Yes Status: Chronic (7) Nicotine dependence Current Visit: No Status: Acute Qualifiers: Nicotine product type: cigarettes Substance use status: in withdrawal Qualified Code(s): F17.213 - Nicotine dependence, cigarettes, with withdrawal (8) Asthma Current Visit: No Status: Chronic (9) DM Diabetes mellitus type 1 Current Visit: No Status: Chronic (10) HYPERTENSION Current Visit: No Status: Chronic (11) Human immunodeficiency virus infection Current Visit: No Status: Chronic - Initial Treatment Plan Initial Treatment Plan: Continue inpatient detoxification
[2019-01-27] MEDS: FLUCONAZOLE 100 MG TABLET (UD) PO SCH (10:28)
[2019-01-27] MEDS: PRENATAL VITAMINS W/ FOLIC ACID TABLET (FP) PO SCH (10:28)
[2019-01-27] MEDS: RANITIDINE HCL 150 MG TABLET (FP) PO SCH ×2 (10:28→22:05)
[2019-01-27] MEDS: LISINOPRIL 10 MG TABLET (FP) PO SCH (10:28)
[2019-01-27] MEDS: SULFAMETHOXAZOLE/TRIMETHOPRIM 800MG/160MG D.S. TABLET PO SCH (10:28)
[2019-01-27] MEDS: FLUOCINONIDE 0.05% CREAM (60 GM TUBE) TP SCH ×2 (10:32→22:14)
[2019-01-27] MEDS: THIAMINE HCL 100 MG TABLET (FP) PO SCH (22:05)
[2019-01-28] MEDS ORDERED: METHADONE HCL 10 MG TABLET ONE (05:00)
[2019-01-28] MEDS ORDERED: METHADONE HCL 40 MG DISPERSABLE TABLET ONE (05:01)
[2019-01-28] MEDS: METHADONE 40 MG, METHADONE 10 MG PO SCH (06:27)
[2019-01-28] MEDS ORDERED: INSULIN (LEVEMIR) 100 UNITS/ML UNITS SQ ONE (06:31)
[2019-01-28] MEDS: INSULIN (LEVEMIR) 100 UNITS/ML UNITS SQ SCH (06:34)
[2019-01-28] MEDS: chlordiazePOXIDE HCL 25 MG CAPSULE PO SCH ×2 (06:35→10:27)
[2019-01-28] MEDS: LISINOPRIL 10 MG TABLET (FP) PO SCH (10:17)
[2019-01-28] MEDS: FLUCONAZOLE 100 MG TABLET (UD) PO SCH (10:17)
[2019-01-28] MEDS: SULFAMETHOXAZOLE/TRIMETHOPRIM 800MG/160MG D.S. TABLET PO SCH (10:17)
[2019-01-28] MEDS: RANITIDINE HCL 150 MG TABLET (FP) PO SCH ×2 (10:17→22:46)
[2019-01-28] MEDS: FLUOCINONIDE 0.05% CREAM (60 GM TUBE) TP SCH ×2 (10:19→22:45)
[2019-01-28] MEDS: PRENATAL VITAMINS W/ FOLIC ACID TABLET (FP) PO SCH (10:23)
--- NOTE | 2019-01-28 16:47 | PN ---
[facility] CIWA - CIWA Score Nausea/Vomitin-No Nausea/No Vomiting Muscle Tremors: 2 Anxiety: 4-Mod. Anxious/Guarded Agitation: 0-Normal Activity Paroxysmal Sweats: No Perspiration Orientation: 0-Oriented Tacttile Disturbances: 2-Mild Itch/Numbness/Burn Auditory Disturbances: 0-None Visual Disturbances: 3-Moderate Sensitivity Headache: 0-None Present CIWA-Ar Total Score: 11 BHS Progress Note (SOAP) Subjective: Fatigue, Interrupted Sleep, Body Aches, Tremors. Objective: PATIENT A & O X 3, IN NO ACUTE DISTRESS. 01/28/19 16:44 Vital Signs Temperature 98.4 F 01/28/19 14:24 Pulse Rate 72 01/28/19 14:24 Respiratory Rate 18 01/28/19 14:24 Blood Pressure 136/72 01/28/19 14:24 O2 Sat by Pulse Oximetry (%) Laboratory Tests 01/26/19 01/26/19 01/26/19 13:08 14:54 15:05 WBC 4.5 RBC 3.82 Hgb 10.6 L Hct 32.8 MCV 86.0 MCH 27.7 MCHC 32.3 RDW 16.2 H Plt Count 183 D MPV 9.1 Sodium Potassium Chloride Carbon Dioxide Anion Gap BUN Creatinine Creat Clearance w eGFR POC Glucometer 80 Random Glucose Calcium Total Bilirubin AST ALT Alkaline Phosphatase Total Protein Albumin POC Urine HCG, Qual Negative RPR Titer 01/26/19 01/26/19 01/26/19 15:05 15:05 16:33 WBC RBC Hgb Hct MCV MCH MCHC RDW Plt Count MPV Sodium 142 Potassium 4.5 Chloride 104 Carbon Dioxide 36 H Anion Gap 1 L BUN 10 Creatinine 0.7 Creat Clearance w eGFR 85.95 POC Glucometer 134 Random Glucose 78 Calcium 8.8 Total Bilirubin 0.2 AST 17 ALT 14 Alkaline Phosphatase 80 Total Protein 7.1 Albumin 3.0 L POC Urine HCG, Qual RPR Titer Nonreactive 01/27/19 01/27/19 01/28/19 06:01 16:39 06:25 WBC RBC Hgb Hct MCV MCH MCHC RDW Plt Count MPV Sodium Potassium Chloride Carbon Dioxide Anion Gap BUN Creatinine Creat Clearance w eGFR POC Glucometer 270 78 243 Random Glucose Calcium Total Bilirubin AST ALT Alkaline Phosphatase Total Protein Albumin POC Urine HCG, Qual RPR Titer LABS NOTED. Assessment: 01/28/19 16:45 WITHDRAWAL SYMPTOMS. Plan: CONTINUE DETOX. INCREASE DAILY PO FLUID / WATER INTAKE. ENCOURAGE AMBULATION. PATIENT IS CURRENTLY RECEIVING DAILY MVI CONTAINING B VITAMINS AND IRON WHILE ADMITTED FOR DETOX.
[2019-01-28] MEDS ORDERED: chlordiazePOXIDE HCL 10 MG CAPSULE PO PRN (17:00)
[2019-01-28] MEDS: chlordiazePOXIDE HCL 10 MG CAPSULE PO SCH ×2 (17:25→22:45)
[2019-01-28] MEDS: THIAMINE HCL 100 MG TABLET (FP) PO SCH (22:46)
[2019-01-29] MEDS ORDERED: METHADONE HCL 10 MG TABLET ONE ×2 (04:02→09:01)
[2019-01-29] MEDS ORDERED: METHADONE HCL 40 MG DISPERSABLE TABLET ONE ×2 (04:02→09:01)
[2019-01-29] MEDS: chlordiazePOXIDE HCL 10 MG CAPSULE PO SCH ×3 (05:34→19:41)
[2019-01-29] MEDS: INSULIN (LEVEMIR) 100 UNITS/ML UNITS SQ SCH (08:52)
[2019-01-29] MEDS: METHADONE 40 MG, METHADONE 10 MG PO SCH (10:45)
[2019-01-29] MEDS: LISINOPRIL 10 MG TABLET (FP) PO SCH (10:46)
[2019-01-29] MEDS: FLUCONAZOLE 100 MG TABLET (UD) PO SCH (10:46)
[2019-01-29] MEDS: SULFAMETHOXAZOLE/TRIMETHOPRIM 800MG/160MG D.S. TABLET PO SCH (10:48)
[2019-01-29] MEDS: RANITIDINE HCL 150 MG TABLET (FP) PO SCH ×2 (10:50→22:28)
[2019-01-29] MEDS: FLUOCINONIDE 0.05% CREAM (60 GM TUBE) TP SCH ×2 (10:50→22:28)
[2019-01-29] MEDS: PRENATAL VITAMINS W/ FOLIC ACID TABLET (FP) PO SCH (10:50)
--- NOTE | 2019-01-29 14:34 | PN ---
S CIWA - CIWA Score Nausea/Vomitin-No Nausea/No Vomiting Muscle Tremors: 2 Anxiety: 2 Agitation: 1-Slight > Activity Paroxysmal Sweats: 2 Orientation: 1-Uncertain about Date Tacttile Disturbances: 0-None Auditory Disturbances: 0-None Visual Disturbances: 0-None Headache: 0-None Present CIWA-Ar Total Score: 8 BHS Progress Note (SOAP) Subjective: c/o sweats and interrupted sleep. Objective: 01/29/19 14:35 Vital Signs 01/29/19 01/29/19 09:53 14:16 Temperature 98.6 F 98.3 F Pulse Rate 95 H 91 H Respiratory 18 18 Rate Blood Pressure 133/70 136/72 Vital signs noted. Assessment: 01/29/19 14:35 AOx3, no distress noted Full ROM, ambulating in the unit with a cane. withdrawal symptoms persists. Plan: Continue detox increase fluids
[2019-01-29] MEDS: THIAMINE HCL 100 MG TABLET (FP) PO SCH (22:28)
[2019-01-30] MEDS: INSULIN (LEVEMIR) 100 UNITS/ML UNITS SQ SCH (06:32)
[2019-01-30] MEDS: chlordiazePOXIDE HCL 10 MG CAPSULE PO SCH (06:32)
[2019-01-30] MEDS ORDERED: GLUCAGON 1 MG KIT IM ONE (07:42)
--- NOTE | 2019-01-30 07:48 | PN ---
[facility] Progress Note Note: SEEN FOR LOW BLOOD SUGAR 40 MG/DL. CLIENT IS A/OX3. C/O WEAKNESS, DIZZINESS, DIAPHORETIC, AND ANXIOUS. CLIENT IS SEEN LYING IN BED NAD Laboratory Tests 01/26/19 01/26/19 01/26/19 13:08 14:54 15:05 WBC 4.5 RBC 3.82 Hgb 10.6 L Hct 32.8 MCV 86.0 MCH 27.7 MCHC 32.3 RDW 16.2 H Plt Count 183 D MPV 9.1 Sodium Potassium Chloride Carbon Dioxide Anion Gap BUN Creatinine Creat Clearance w eGFR POC Glucometer 80 Random Glucose Calcium Total Bilirubin AST ALT Alkaline Phosphatase Total Protein Albumin POC Urine HCG, Qual Negative RPR Titer 01/26/19 01/26/19 01/26/19 15:05 15:05 16:33 WBC RBC Hgb Hct MCV MCH MCHC RDW Plt Count MPV Sodium 142 Potassium 4.5 Chloride 104 Carbon Dioxide 36 H Anion Gap 1 L BUN 10 Creatinine 0.7 Creat Clearance w eGFR 85.95 POC Glucometer 134 Random Glucose 78 Calcium 8.8 Total Bilirubin 0.2 AST 17 ALT 14 Alkaline Phosphatase 80 Total Protein 7.1 Albumin 3.0 L POC Urine HCG, Qual RPR Titer Nonreactive 01/27/19 01/27/19 01/28/19 06:01 16:39 06:25 WBC RBC Hgb Hct MCV MCH MCHC RDW Plt Count MPV Sodium Potassium Chloride Carbon Dioxide Anion Gap BUN Creatinine Creat Clearance w eGFR POC Glucometer 270 78 243 Random Glucose Calcium Total Bilirubin AST ALT Alkaline Phosphatase Total Protein Albumin POC Urine HCG, Qual RPR Titer 01/28/19 01/28/19 01/29/19 16:58 17:53 05:54 WBC RBC Hgb Hct MCV MCH MCHC RDW Plt Count MPV Sodium Potassium Chloride Carbon Dioxide Anion Gap BUN Creatinine Creat Clearance w eGFR POC Glucometer 24 100 96 Random Glucose Calcium Total Bilirubin AST ALT Alkaline Phosphatase Total Protein Albumin POC Urine HCG, Qual RPR Titer 01/29/19 01/30/19 01/30/19 16:51 06:12 07:22 WBC RBC Hgb Hct MCV MCH MCHC RDW Plt Count MPV Sodium Potassium Chloride Carbon Dioxide Anion Gap BUN Creatinine Creat Clearance w eGFR POC Glucometer 146 40 63 Random Glucose Calcium Total Bilirubin AST ALT Alkaline Phosphatase Total Protein Albumin POC Urine HCG, Qual RPR Titer 01/30/19 07:23 WBC RBC Hgb Hct MCV MCH MCHC RDW Plt Count MPV Sodium Potassium Chloride Carbon Dioxide Anion Gap BUN Creatinine Creat Clearance w eGFR POC Glucometer 61 Random Glucose Calcium Total Bilirubin AST ALT Alkaline Phosphatase Total Protein Albumin POC Urine HCG, Qual RPR Titer GLUCAGON 1MG IM X DOSE STAT bgm x4 h x 24 then bgm ac/hs stat chem HOLD LEVEMIR INCREASE BGM TO AC/HS
[2019-01-30] MEDS ORDERED: METHADONE HCL 10 MG TABLET ONE (09:11)
[2019-01-30] MEDS ORDERED: METHADONE HCL 40 MG DISPERSABLE TABLET ONE (09:11)
[2019-01-30] MEDS: METHADONE 40 MG, METHADONE 10 MG PO SCH (10:39)
[2019-01-30] MEDS: FLUCONAZOLE 100 MG TABLET (UD) PO SCH (10:41)
[2019-01-30] MEDS: RANITIDINE HCL 150 MG TABLET (FP) PO SCH (10:41)
[2019-01-30] MEDS: PRENATAL VITAMINS W/ FOLIC ACID TABLET (FP) PO SCH (10:41)
[2019-01-30] MEDS: FLUOCINONIDE 0.05% CREAM (60 GM TUBE) TP SCH (10:41)
[2019-01-30] MEDS: LISINOPRIL 10 MG TABLET (FP) PO SCH (10:41)
[2019-01-30] MEDS: SULFAMETHOXAZOLE/TRIMETHOPRIM 800MG/160MG D.S. TABLET PO SCH (10:41)
[2019-01-30 10:45] VITALS: BP 159/76; PULSE 84; TEMP 99.9
[2019-01-30 11:13] LABS: ALBUMIN 2.7 g/dl (3.4-5.0); ANION GAP 2 MMOL/L (8-16); BLOOD UREA NITROGEN 17 mg/dL (7-18); CALCIUM 8.8 mg/dL (8.5-10.1); CHLORIDE 102 mmol/L (98-107); CO2 32 mmol/L (21-32); GLUCOSE,RANDOM 193 mg/dL (74-106); POTASSIUM 4.2 mmol/L (3.5-5.1); SODIUM 136 mmol/L (136-145)
--- NOTE | 2019-01-30 11:31 | DS ---
[facility] Detox Discharge Summary Admission Date: 01/26/19 Discharge Date: 01/30/19 - History Present History: Alcohol Dependence, Cocaine Dependence, Opioid Dependence Additional Comments: Patient demanded to leave today. Patient aware that she is not ready for discharge. As per patient, she is leaving anyway because she needs to be home in her own bed. Patient stated that she lives with her son and her mother. Patient is A/A/Ox3, in nad, gait is unsteady, uses a cane for easier mobility. Patient stated she will take a taxi to her home. She refused to complete detox despite encouragement from staff. Patient is adamant about leaving NIA and stated that nothing can stop her from leaving here today. She denies any complaints and denies feeling depressed. Patient was hypoglycemia (FS 40mg/dl) this morning and given juice and glucagon in which fingerstick increased to 169mg/dl. Inside Account Representative educated patient on danger of hypoglycemia and encouraged patient to stay for further observation and to complete detox but patient still refused to stay. Patient instructed to follow up with her PCP within 3 days. Patient is stable and is very agitated and irritable as she demands to leave NIA. Pertinent Past History: Asthma HTN DMT2 GERD HIV Nicotine dependence Alcohol dependence Cocaine dependence Opioid dependence - Physical Exam Results Vital Signs: Vital Signs Temperature 99.9 F H 01/30/19 10:44 Pulse Rate 84 01/30/19 10:44 Respiratory Rate 169 H 01/30/19 10:44 Blood Pressure 159/76 01/30/19 10:44 O2 Sat by Pulse Oximetry (%) Pertinent Admission Physical Exam Findings: Withdrawal symptoms Laboratory Tests 01/26/19 01/26/19 01/26/19 13:08 14:54 15:05 WBC 4.5 RBC 3.82 Hgb 10.6 L Hct 32.8 MCV 86.0 MCH 27.7 MCHC 32.3 RDW 16.2 H Plt Count 183 D MPV 9.1 Sodium Potassium Chloride Carbon Dioxide Anion Gap BUN Creatinine Creat Clearance w eGFR POC Glucometer 80 Random Glucose Calcium Total Bilirubin AST ALT Alkaline Phosphatase Total Protein Albumin POC Urine HCG, Qual Negative RPR Titer 01/26/19 01/26/19 01/26/19 15:05 15:05 16:33 WBC RBC Hgb Hct MCV MCH MCHC RDW Plt Count MPV Sodium 142 Potassium 4.5 Chloride 104 Carbon Dioxide 36 H Anion Gap 1 L BUN 10 Creatinine 0.7 Creat Clearance w eGFR 85.95 POC Glucometer 134 Random Glucose 78 Calcium 8.8 Total Bilirubin 0.2 AST 17 ALT 14 Alkaline Phosphatase 80 Total Protein 7.1 Albumin 3.0 L POC Urine HCG, Qual RPR Titer Nonreactive 01/27/19 01/27/19 01/28/19 06:01 16:39 06:25 WBC RBC Hgb Hct MCV MCH MCHC RDW Plt Count MPV Sodium Potassium Chloride Carbon Dioxide Anion Gap BUN Creatinine Creat Clearance w eGFR POC Glucometer 270 78 243 Random Glucose Calcium Total Bilirubin AST ALT Alkaline Phosphatase Total Protein Albumin POC Urine HCG, Qual RPR Titer 01/28/19 01/28/19 01/29/19 16:58 17:53 05:54 WBC RBC Hgb Hct MCV MCH MCHC RDW Plt Count MPV Sodium Potassium Chloride Carbon Dioxide Anion Gap BUN Creatinine Creat Clearance w eGFR POC Glucometer 24 100 96 Random Glucose Calcium Total Bilirubin AST ALT Alkaline Phosphatase Total Protein Albumin POC Urine HCG, Qual RPR Titer 01/29/19 01/30/19 01/30/19 16:51 06:12 07:22 WBC RBC Hgb Hct MCV MCH MCHC RDW Plt Count MPV Sodium Potassium Chloride Carbon Dioxide Anion Gap BUN Creatinine Creat Clearance w eGFR POC Glucometer 146 40 63 Random Glucose Calcium Total Bilirubin AST ALT Alkaline Phosphatase Total Protein Albumin POC Urine HCG, Qual RPR Titer 01/30/19 01/30/19 01/30/19 07:23 08:17 08:30 WBC RBC Hgb Hct MCV MCH MCHC RDW Plt Count MPV Sodium 136 Potassium 4.2 Chloride 102 Carbon Dioxide 32 Anion Gap 2 L BUN 17 Creatinine 0.7 Creat Clearance w eGFR 85.95 POC Glucometer 61 169 Random Glucose 193 H Calcium 8.8 Total Bilirubin 0.2 AST ALT 13 Alkaline Phosphatase 80 Total Protein 7.5 Albumin 2.7 L POC Urine HCG, Qual RPR Titer Labs reviewed - Medication Discharge Medications: Ambulatory Orders Albuterol Sulfate Inhaler - [Ventolin Hfa Inhaler -] 2 inh PO Q4H PRN 08/11/17 Fluconazole [Diflucan -] 100 mg PO BID 08/11/17 Insulin Glargine,Hum.rec.anlog [Toualeks Solostar] 15 unit SQ HS 11/14/17 Sulfamethoxazole/Trimethoprim [Sulfamethoxazole-Tmp Ds Tablet] 1 each PO DAILY 08/11/17 Lisinopril 10 mg PO DAILY 06/10/18 Ranitidine [Zantac -] 150 mg PO BID 06/10/18 - Diagnosis (1) Type 2 diabetes mellitus with hyperglycemia Current Visit: Yes Status: Chronic (2) GERD (gastroesophageal reflux disease) Current Visit: Yes Status: Chronic (3) Alcohol dependence with uncomplicated withdrawal Current Visit: Yes Status: Acute (4) Cocaine dependence, uncomplicated Current Visit: Yes Status: Chronic (5) Nicotine dependence Current Visit: Yes Status: Chronic Qualifiers: Nicotine product type: cigarettes Substance use status: in withdrawal Qualified Code(s): F17.213 - Nicotine dependence, cigarettes, with withdrawal (6) Opioid dependence with withdrawal Current Visit: Yes Status: Acute (7) Asthma Current Visit: Yes Status: Chronic (8) HYPERTENSION Current Visit: Yes Status: Chronic (9) Human immunodeficiency virus infection Current Visit: Yes Status: Chronic - AMA Did Patient Leave Against Medical Advice: Yes (Follow up with PCP within 3 days)
[2019-01-30 11:34] LABS: ALK PHOS 80 U/L (45-117); BILIRUBIN,TOTAL 0.2 mg/dL (0.2-1); CREATININE 0.7 mg/dL (0.55-1.3); SGPT/ALT 13 U/L (13-61); TOT PROT 7.5 g/dl (6.4-8.2)
[2019-01-30 13:33] LABS: SGOT/AST 16 U/L (15-37)
== END 2019-01-30 11:00 | disposition left against medical advice (07) | DRG 770 ==
LOC: YASAS 11:56 → Y6N 14:46
PROVIDERS: ADMIT Surgery; ATTEND Surgery
PROC: HZ2ZZZZ Detoxification Services for Substance Abuse Treatment (ICD-10-PCS; principal; 2019-01-26)
DX: F10.230 Alcohol dependence with withdrawal, uncomplicated (principal); F14.20 Cocaine dependence, uncomplicated; F11.20 Opioid dependence, uncomplicated; F17.213 Nicotine dependence, cigarettes, with withdrawal; F19.24 Other psychoactive substance dependence with psychoactive substance-induced mood disorder; F19.282 Other psychoactive substance dependence with psychoactive substance-induced sleep disorder; F32.9 Major depressive disorder, single episode, unspecified; Z21 Asymptomatic human immunodeficiency virus [HIV] infection status; E11.65 Type 2 diabetes mellitus with hyperglycemia; Z79.4 Long term (current) use of insulin; I10 Essential (primary) hypertension; K21.9 Gastro-esophageal reflux disease without esophagitis; L25.9 Unspecified contact dermatitis, unspecified cause; B37.0 Candidal stomatitis; R63.4 Abnormal weight loss; Z68.1 Body mass index [BMI] 19.9 or less, adult; Z99.89 Dependence on other enabling machines and devices
CPT/HCPCS: 36415; 80053; 81025; 82962; 85027; 86593; 93005; 93010

== ENCOUNTER 2019-09-01 14:42 | Emergency (ER) | payer OTHER ==
[2019-09-01 14:51] VITALS: BMI 15.2
[2019-09-01 14:54] VITALS: TEMP 98.4
--- NOTE | 2019-09-01 15:26 | PDOC ---
History of Present Illness - General Chief Complaint: Rash Stated Complaint: RASH Time Seen by Provider: 09/01/19 15:02 History Source: Patient - History of Present Illness Initial Comments: 09/01/19 16:08 Patient is a 89 year old female with PMH of polysubstance abuse, HIV, HTN, IDDM , depression who presents from [facility] failure to thrive and diffuse excoriations. Pt arrived at [facility] this am for detox from heroin, cocaine, and alcohol (last drink was last night). She was sent to the ER for medical evaluation of her HIV status. Pt has not taken HIV meds for >1 year. Over the past month she has developed diffuse painful rashes and excoriations on her upper and lower ext BL. She also complains of worsening dysphagia to the point that she can only eat very soft foods and soups. Reports progressive weakness and poor appetite overall. No fevers, chills, chest pain, SOB, nausea, vomiting , diarrhea, abd pain. Pt states that she last saw a medical doctor in the [place] 2 months ago who wanted to re-start her HIV meds, however she never picked them up because "she was too weak". She lives in the [place] with her mother. Of note, pt reports a fall 3 days ago. She was walking outside when "her blood sugar got too low", she felt lightheaded and fell forward hitting her hands, knees, and head. A few witnesses helped her up, fed her food, and she felt better. Denies any headaches, vision changes, seizures, dizziness or vertigo. She reports that she usually takes her insulin but does not take any other medications. Pt also denies any withdrawal symptoms at this time. 09/01/19 16:17 Past History - Past Medical History Allergies/Adverse Reactions: Allergies Allergy/AdvReac Type Severity Reaction Status Date / Time No Known Allergies Allergy Verified 09/01/19 10:12 Home Medications: Ambulatory Orders Fluconazole 100 mg PO DAILY #14 tablet 09/01/19 Fluconazole 200 mg PO ONCE #1 tablet 09/01/19 Insulin Glargine,Hum.rec.anlog [Basaglar Kwikpen U-100] 10 unit SQ BID 09/01/19 Zolpidem Tartrate [Ambien] 10 mg PO HS 09/01/19 Anemia: No Asthma: Yes (Pt is on MDI.) Cancer: No Cardiac Disorders: No CVA: No COPD: No CHF: No Dementia: No Diabetes: Yes (on insulin) GI Disorders: Yes (Hx of GERD) Disorders: No HTN: Yes (ON MEDS.) Hypercholesterolemia: No Kidney Stones: No Liver Disease: No Seizures: No Thyroid Disease: No - Surgical History Abdominal Surgery: No Appendectomy: No Cardiac Surgery: No Cholecystectomy: No Lung Surgery: No Neurologic Surgery: No Orthopedic Surgery: No - Reproductive History PID: No - Psycho Social/Smoking Cessation Hx Smoking History: Current every day smoker Have you smoked in the past 12 months: Yes Number of Cigarettes Smoked Daily: 7 Cigars Per Day: 0 Information on smoking cessation initiated: Yes 'Breaking Loose' booklet given: 01/26/19 Hx Alcohol Use: Yes Drug/Substance Use Hx: Yes (heroin & cocaine) Substance Use Type: Alcohol, Cocaine, Heroin Hx Substance Use Treatment: Yes ([facility] 06/11[facility]18 not completed) Review of Systems - Review of Systems Able to Perform ROS?: Yes Constitutional: No: Symptoms Reported, Chills, Diaphoresis, Fever, Loss of Appetite, Malaise, Night Sweats, Weakness, Weight Stable, Unintentional Wgt. Loss, Unexplained wgt Loss, Other HEENTM: Yes: Throat Pain, Difficulty Swallowing. No: Symptoms Reported, See HPI , Eye Pain, Blurred Vision, Tearing, Recent change in vision, Double Vision, Cataracts, Ear Pain, Ocular Prothesis, Ear Discharge, Nose Pain, Nose Congestion , Tinnitus, Nose Bleeding, Hearing Loss, Throat Swelling, Mouth Pain, Dental Problems, Mouth Swelling, Other Respiratory: No: Symptoms reported, See HPI, Cough, Orthopnea, Shortness of Breath, SOB with Exertion, SOB at Rest, Stridor, Wheezing, Productive cough, Hemoptysis, Other Cardiac (ROS): No: Symptoms Reported, See HPI, Chest Pain, Edema, Irregular Heart Rate, Lightheadedness, Palpitations, Syncope, Chest Tightness, Other ABD/GI: No: Symptoms Reported, See HPI, Abdominal Distended, Abd. Pain w/ defecation, Blood Streaked Bowels, Constipated, Diarrhea, Difficulty Swallowing , Nausea, Poor Appetite, Poor Fluid Intake, Rectal Bleeding, Vomiting, Indigestion, Abdominal cramping, Tarry Stools, Other : No: Symptoms Reported, See HPI, Burning, Dysuria, Discharge, Frequency, Flank Pain, Hematuria, Incontinence, Pain, Urgency, Testicular Mass, Testicular Swelling, Lesions, Testicular Pain, Other Musculoskeletal: Yes: Muscle Pain, Muscle Weakness. No: Symptoms Reported, See HPI, Back Pain, Gout, Joint Pain, Joint Swelling, Neck Pain, Joint Stiffness, Other Integumentary: Yes: Bruising, Dryness, Pruritus, Rash *Physical Exam - Vital Signs Last Vital Signs Temp Pulse Resp BP Pulse Ox 98.4 F 53 L 14 136/74 98 09/01/19 14:45 09/01/19 14:45 09/01/19 14:45 09/01/19 14:45 09/01/19 14:45 - Physical Exam General Appearance: Yes: Disheveled, Cachetic, Thin HEENT: positive: EOMI, DARRICK, Lesions, Santana, Other (Marked leukoplakia on tongue and tonsils). negative: Pharynx Normal Respiratory/Chest: positive: Lungs Clear, Normal Breath Sounds. negative: Respiratory Distress, Crackles, Wheezing Cardiovascular: positive: Regular Rhythm, Regular Rate, S1, S2. negative: Edema , JVD, Murmur Vascular Pulses: Dorsalis-Pedis (R): 2+, Doralis-Pedis (L): 2+ Gastrointestinal/Abdominal: positive: Normal Bowel Sounds, Soft. negative: Tender Musculoskeletal: positive: Other (Thin) Extremity: positive: Other (Multiple white plaques, rash and excoriations on UE and LE b/l). negative: Normal Inspection, Calf Tenderness ED Treatment Course - LABORATORY CBC & Chemistry Diagram: 09/01/19 14:30 09/01/19 14:30 Medical Decision Making - Medical Decision Making 09/01/19 16:21 >> Sepsis w/u - CD4 count, HIV reflex - CT head for fall Will admit for ID evaluation and workup of dysphagia 09/01/19 19:13 CT head: mild-mod nonspecific periventricular and subcortical white matter hypodensity, likely on basis of chronic microvascualr ischemic changes given patient's age. Prominent atherosclerotic calcifciations note along the cavernous carotid arteries Labs reviewed. Pt feels well, tolerating po. Medically stable to be d/c'ed back to [facility]. Urged to f/u with PCP, Dr. De León after detox in order to cont HIV treatment. 09/01/19 19:56 09/01/19 19:58 Discharge - Discharge Information Problems reviewed: Yes Clinical Impression/Diagnosis: HIV disease, Rash Condition: Stable Disposition: HOME - Admission No - Additional Discharge Information Prescriptions: Fluconazole 100 mg PO DAILY #14 tablet Fluconazole 200 mg PO ONCE #1 tablet - Follow up/Referral Referrals: Tracy Roche MD [Staff Physician] - - Patient Discharge Instructions Additional Instructions: You were evaluated int he ER for your rash and difficulty swallowing. You are medically stable to be discharged back to [facility] to complete your detox. You should follow up with your primary care doctor, Dr. De León, after completing detox in order to be treated for your HIV. You should take Fluconazole 100mg once a day for 14 days to treat possible infection in your mouth/throat. Please follow up with a farmworker general after detox in order to evaluate your rash. We provided you with a referral to see Dr. Roche. - Post Discharge Activity
[2019-09-01 17:10] LABS: BASO % 0.5 % (0-2.0); EOS % 1.8 % (0-4.5); HEMATOCRIT 32.4 % (32.4-45.2); HEMOGLOBIN 10.6 GM/dL (10.7-15.3); LYMPH % 24.2 % (8-40); MCH 28.7 pg (25.7-33.7); MCHC 32.7 g/dl (32.0-36.0); MEAN CELL VOLUME 87.6 fl (80-96); MEAN PLT VOLUME 9.5 fl (7.5-11.1); MONO % 7.5 % (3.8-10.2); PLATELET COUNT 233 K/MM3 (134-434); RDW 14.1 % (11.6-15.6); WHITE BLOOD COUNT 4.7 K/mm3 (4.0-10.0)
[2019-09-01 17:40] LABS: BILIRUBIN,TOTAL 0.2 mg/dL (0.2-1); BLOOD UREA NITROGEN 13.8 mg/dL (7-18); CALCIUM 9.2 mg/dL (8.5-10.1); CREATININE 0.8 mg/dL (0.55-1.3); POTASSIUM 4.7 mmol/L (3.5-5.1)
[2019-09-01 20:26] LABS: EPI CELLS 0.9 /HPF (0-5/HPF); HYALINE CASTS 5 /lpf (0-8); PH,URINE 5.5 (5.0-8.0); URINE APPEARANCE CLEAR; URINE BACTERIA 6495.6 /hpf (NEGATIVE); URINE BILIRUBIN NEGATIVE (NEGATIVE); URINE COLOR YELLOW; URINE GLUCOSE (UA) 3+ (NEGATIVE); URINE KETONE NEGATIVE (NEGATIVE); URINE LEUK ESTERASE TRACE (NEGATIVE); URINE NITRITE POSITIVE (NEGATIVE); URINE PROTEIN TRACE (NEGATIVE); URINE RBC 1 /hpf (0-4); URINE WBC 30 /hpf (0-5)
--- NOTE | 2019-09-01 20:48 | PDOC ---
Documentation entered by Kimberly Goldsmith SCRIBE, acting as scribe for Laurie Dickens MD. Laurie Dickens MD: This documentation has been prepared by the Rupal weaver Nirvannie, SCRIBE, under my direction and personally reviewed by me in its entirety. I confirm that the documentation accurately reflects all work, treatment, procedures, and medical decision making performed by me. Attending Attestation - Resident Resident Name: Elizabeth Farmer - ED Attending Attestation I have performed the following: I have examined & evaluated the patient, The case was reviewed & discussed with the resident, I agree w/resident's findings & plan - HPI HPI: 09/01/19 20:33 58 yo F h/o HIV , not taking meds for one year, followed by a doctor Dr De León for HIV in the [place] whom she saw 2 months ago, here from [facility] where she was requesting detox. was sent from [facility] for concens for rash and sore throat. pt states she saw HIV doctor 2 months ago. was supposed to be restrated on antivirals,but she never got her meds. denies no f/c no cp does c/o sore throat, but is tolerating PO. no cough no other complaints. 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 - Physicial Exam PE: 09/01/19 20:38 pt awake alert thin. moist mucous membranes. adherant white plaque base of tongue. no stridor. lungs clear bilat. heart rrr no mrg abd soft nt nd. skin with dermatitis, dry scaly rash over extensor surfaces. patchy, psoriasis like in appearance. nuerologically awake alert oriented. - Medical Decision Making 09/01/19 20:40 58 yo F with h/o hiv, substance abuse here for rash from [facility]. appearance of rash is like psoriasis, however due to h/o hiv other causes of dermatitis considered including skin ca. will recommend dermatology followup after detox. pt to follow up with her primary doctor dr tang to arrange re initiation of her HIV meds. due to concerns for inability to scrape off concerns for luekoplakia. will recommend fluconazole 100 mg daily x 2 weeks, and fu with pcp ana maría load with 200 mg here in ED.. 09/01/19 20:47 pt labs unremarkable. tolerating PO. will send to detoxz.. d/w [facility], pt to go back to intake area 09/01/19 20:50
[2019-09-01] MEDS ORDERED: FLUCONAZOLE 100 MG TABLET (UD) PO ONE (20:55)
[2019-09-01] MEDS ORDERED: FLUCONAZOLE 100 MG TABLET (UD) ONE (20:57)
[2019-09-01 21:57] VITALS: BP 131/76; PULSE 57
== END 2019-09-01 21:39 | disposition home or self-care (01) ==
LOC: JER 14:42
DX: B20 Human immunodeficiency virus [HIV] disease (principal); R21 Rash and other nonspecific skin eruption; Z91.14 Patient's other noncompliance with medication regimen; F19.10 Other psychoactive substance abuse, uncomplicated; E11.9 Type 2 diabetes mellitus without complications; I10 Essential (primary) hypertension; F32.9 Major depressive disorder, single episode, unspecified
CPT/HCPCS: 36415; 70450-TC; 71045-TC-FY; 80053; 81003; 85025; 87040; 87086; 87186; 87389; 99283-25